=== PATIENT | female | born 1970 | race Caucasian/White ===

== ENCOUNTER → 2018-02-03 | Outpatient (CLI) | payer BC ==
--- NOTE | 2018-02-03 12:58 | MM ---
Reason for exam: screening (asymptomatic). Baseline mammogram. History: Took hormonal contraceptives beginning at age 17. Physical Findings: Nurse did not find any significant physical abnormalities on exam. MG 3D Screening Mammo W/Cad Bilateral CC and MLO view(s) were taken. The breast tissue is heterogeneously dense. This may lower the sensitivity of mammography. There is a group of 4mm calcifications upper outer quadrant at middle posterior depth. These results were verbally communicated with the patient and result sheet given to the patient on 02/03/18. ASSESSMENT: Incomplete: need additional imaging evaluation, BI-RAD 0 RECOMMENDATION: Special view mammogram of the left breast. (magnification views) Ultrasound of both breasts. (left lower inner quadrant, right upper outer quadrant) [facility] will attempt to contact patient to return for supplemental views and ultrasound.
--- NOTE | 2018-02-03 13:00 | MM ---
Reason for exam: additional evaluation requested from abnormal screening. History: Took hormonal contraceptives beginning at age 17. Physical Findings: Breast exam preformed at baseline screening. MG Work Up Mamm w CAD LT CC with magnification, LM with magnification, and LM view(s) were taken of the left breast. The breast tissue is heterogeneously dense. This may lower the sensitivity of mammography. There is a 3mm group of upper outer quadrant calcifications at middle depth, appear rounded and similar, probably benign. These results were verbally communicated with the patient and result sheet given to the patient on 02/03/18. ASSESSMENT: Probably benign, BI-RAD 3 RECOMMENDATION: Follow-up diagnostic mammogram of the left breast in 6 months.
--- NOTE | 2018-02-03 13:03 | USB ---
Reason for exam: additional evaluation requested from abnormal screening. History: Took hormonal contraceptives beginning at age 17. US Breast Workup Limited GOOD Right limited breast ultrasound including focal area of concern, retroareolar and axilla demonstrates a 0.2 x 0.2 x 0.3cm lesion too small to characterize at 10 o'clock, however no distinct increase through transmission, 6 month follow up recommended and a 0.9 x 0.9 x 0.6cm cystic, septated, benign lesion at 8 o'clock, correlates with mammogram. Left limited breast ultrasound including focal area of concern, retroareolar and axilla demonstrates a 0.4 x 0.4 x 0.2cm cystic lesion at the posterior nipple, 6 month follow up recommended. These results were verbally communicated with the patient and result sheet given to the patient on 02/03/18. ASSESSMENT: Probably benign, BI-RAD 3 RECOMMENDATION: Ultrasound of both breasts in 6 months.
== END | disposition home or self-care (01) ==
LOC: RADMAMWWP 10:15
PROVIDERS: ATTEND Family Medicine
DX: Z12.31 Encounter for screening mammogram for malignant neoplasm of breast (principal); R92.8 Other abnormal and inconclusive findings on diagnostic imaging of breast
CPT/HCPCS: 77063; 77065; 77067

== ENCOUNTER → 2018-08-21 | Outpatient (CLI) | payer BC ==
--- NOTE | 2018-08-21 11:54 | USB ---
Reason for exam: follow-up at short interval from prior study. History: Took hormonal contraceptives beginning at age 17. Physical Findings: Nurse did not find any significant physical abnormalities on exam. US Breast BILAT Right complete breast ultrasound includes all four quadrants, the retroareolar region and axilla. Finding demonstrates a 5 x 3 x 4mm cystic, mixed lesion at 12 o'clock, a 1.0 x 0.5 x 0.9cm cystic cluster at 8 o'clock prior measured 0.9 x 0.9 x 0.9cm and a 4 x 2 x 3mm lesion too small to characterize at 10 o'clock prior measured 0.2 x 0.2 x 0.3cm, this demonstrated minimal growth in a parralled fashion, likely a cyst, 6 month follow up recommended. Left complete breast ultrasound includes all four quadrants, the retroareolar region and axilla. Finding demonstrates a 5 x 3 x 4mm cystic lesion at 1 o'clock and a 5 x 2 x 6mm oval, cystic lesion at the posterior nipple prior measured 0.4 x 0.4 x 0.2c,/ These results were verbally communicated with the patient and result sheet given to the patient on 08/21/18. ASSESSMENT: Probably benign, BI-RAD 3 RECOMMENDATION: Ultrasound and follow-up diagnostic mammogram of both breasts in 6 months. Back on schedule.
== END | disposition home or self-care (01) ==
LOC: RADUSWWP 09:53
PROVIDERS: ATTEND Family Medicine
DX: R92.8 Other abnormal and inconclusive findings on diagnostic imaging of breast (principal)

== ENCOUNTER → 2018-11-18 | Outpatient (CLI) | payer BC ==
--- NOTE | 2018-11-18 21:28 | MR ---
EXAMINATION TYPE: MR brain wo/w con DATE OF EXAM: 11/18/2018 COMPARISON: NONE HISTORY: Headaches, dizziness, blurred vision, loss of balance TECHNIQUE: Multiplanar, multisequence images of the brain and brainstem is performed without and with IV contras t, utilizing 7 mL intravenous Gadavist . FINDINGS: Diffusion weighted images demonstrate no evidence of a recent infarct or other diffusion ab normality. There is no extra-axial fluid collection or significant white matter signal abnormality. The ventricular system and cisternal spaces are normal in size and appearance. The brain volume is age appropriate. Midline structures demonstrate normal morphology. The craniocervical junction appears within normal limits. Post contrast images demonstrate no abnormal enhancement. The dural venous sinuses appear pa tent. The visualized sinuses are clear and the globes are intact. Mastoid air cells show no suspiciou s opacification. IMPRESSION: No suspicious findings identified.
== END ==
LOC: RADMRIMAIN 15:05
PROVIDERS: ATTEND Family Medicine
DX: H93.3X9 Disorders of unspecified acoustic nerve (principal); H91.90 Unspecified hearing loss, unspecified ear; R42 Dizziness and giddiness
CPT/HCPCS: 70553; A9585

== ENCOUNTER → 2018-11-23 | Outpatient (CLI) | payer BC ==
--- NOTE | 2018-11-24 08:06 | US ---
EXAMINATION TYPE: US carotid duplex BILAT DATE OF EXAM: 11/23/2018 COMPARISON: NONE CLINICAL HISTORY: H53.9 Visual disturbance. Visual disturbance, headaches. EXAM MEASUREMENTS: RIGHT: Peak Systolic Velocity (PSV) cm/sec ----- Right CCA: 67.7 ----- Right ICA: 99.5 ----- Right ECA: 80.8 ICA/CCA ratio: 1.5 RIGHT: End Diastole cm/sec ----- Right CCA: 26.7 ----- Right ICA: 47.7 ----- Right ECA: 18.0 LEFT: Peak Systolic Velocity (PSV) cm/sec ----- Left CCA: 61.6 ----- Left ICA: 87.7 ----- Left ECA: 54.1 ICA/CCA ratio: 1.4 LEFT: End Diastole cm/sec ----- Left CCA: 28.5 ----- Left ICA: 40.3 ----- Left ECA: 13.7 VERTEBRALS (direction of flow): Right Vertebral: Antegrade Left Vertebral: Antegrade Rhythm: Normal Intimal thickening seen bilaterally. No elevated velocities obtained. No significant stenosis seen. IMPRESSION: Mild degree of grayscale atheromatous plaquing with no sonographically evident hemodynam ically significant stenosis within either visualized carotid arterial system. Criteria for Assigning % of Stenosis / Diameter reduction (Estimation based on the indirect measurements of the internal carotid artery velocities (ICA PSV). 1. Normal (no stenosis)=ICA PSV < 125 cm/s: ratio < 2.0: ICA EDV<40 cm/s. 2. Less than 50% stenosis=ICA PSV < 125 cm/s: ratio < 2.0: ICA EDV<40 cm/s. 3. 50 to 69% stenosis=ICA PSV of 125 to 230 cm/s: ration 2.0 ? 4.0: ICA EDV 40-100 cm/s. 4. Greater than 70% stenosis to near occlusion= ICA PSV > 230 cm/s: ratio > 4.0: ICA EDV > 100 cm/s. 5. Near occlusion= ICA PSV velocities may be low or undetectable: variable ratio and ICA EDV. 6. Total occlusion=unable to detect flow.
== END ==
LOC: RADUSWWP 16:44
PROVIDERS: ATTEND Family Medicine
DX: I67.2 Cerebral atherosclerosis (principal)
CPT/HCPCS: 93880

== ENCOUNTER 2018-12-11 05:24 | Emergency (ER) | payer BC ==
[2018-12-11 05:36] VITALS: TEMP 97.9
[2018-12-11 05:46] LABS: Glucose,Whole Blood 114 mg/dL (75-99)
--- NOTE | 2018-12-11 05:53 | ED ---
Neuro HPI - General Chief Complaint: Weakness Stated Complaint: rt side numbness Time Seen by Provider: 12/11/18 05:44 Source: patient Mode of arrival: wheelchair Limitations: no limitations - History of Present Illness Is the patient presenting with stroke symptoms?: Yes Last Known Well Date: 12/11/18 Last Known Well Time: 04:00 Onset/Timin -: minutes(s) Initial Comments: Patient is a 48-year-old woman who presents with complaint of right arm and right facial numbness. Patient states that she had gotten up this morning and was feeling like her usual self, and then as she was taking a shower around 4 AM she started to have symptoms. She states that they continued to worsen and she had her bring her here. Patient denies history of previous stroke. Patient denies use of blood thinner/anticoagulant. No previous history of bleeding diathesis. No recent surgery or procedure. Location: right face, right arm History of same: No Place: home Quality: numb Improves With: none Worsens With: none On Anticoagulants: No Context: sudden onset Treatments Prior to Arrival: none - Related Data Allergies/Adverse Reactions: Allergies Allergy/AdvReac Type Severity Reaction Status Date / Time cephalexin [From Keflex] Allergy Rash/Hives Verified 12/11/18 05:36 Review of Systems ROS Statement: Those systems with pertinent positive or pertinent negative responses have been documented in the HPI. ROS Other: All systems not noted in ROS Statement are negative. Constitutional: Denies: fever, chills Eyes: Denies: vision change Respiratory: Denies: cough, dyspnea Cardiovascular: Denies: chest pain, palpitations Gastrointestinal: Denies: abdominal pain, nausea, vomiting Genitourinary: Denies: dysuria, frequency, hematuria Musculoskeletal: Denies: back pain Skin: Denies: rash Neurological: Reports: weakness, numbness. Denies: headache, confusion, vertigo Psychiatric: Reports: anxiety General Exam Limitations: no limitations General appearance: alert, anxious Head exam: Present: atraumatic, normocephalic Eye exam: Present: normal appearance. Absent: scleral icterus, conjunctival injection ENT exam: Present: normal oropharynx Neck exam: Present: normal inspection, full ROM Respiratory exam: Present: normal lung sounds bilaterally. Absent: respiratory distress, wheezes, rales, rhonchi, stridor Cardiovascular Exam: Present: regular rate, normal rhythm, normal heart sounds. Absent: systolic murmur, diastolic murmur, rubs, gallop GI/Abdominal exam: Present: soft. Absent: distended, tenderness, guarding, rebound, rigid, mass Extremities exam: Present: normal inspection, normal capillary refill. Absent: pedal edema, calf tenderness Neurological exam: Present: alert, oriented X3, CN II-XII intact (Right facial droop), motor sensory deficit, other (Patient has right facial droop and mild right upper extremity weakness contrary the left side. Please see the NIH stroke scale attached.) Skin exam: Present: warm, dry, intact, normal color. Absent: rash Stroke MDM - Lab Data Result diagrams: 12/11/18 05:41 12/11/18 05:41 Lab Results 12/11/18 12/11/18 12/11/18 Range/Units 05:41 05:41 05:41 WBC 12.1 H (3.8-10.6) k/uL RBC 5.39 (3.80-5.40) m/uL Hgb 14.9 (11.4-16.0) gm/dL Hct 45.5 (34.0-46.0) % MCV 84.5 (80.0-100.0) fL MCH 27.6 (25.0-35.0) pg MCHC 32.7 (31.0-37.0) g/dL RDW 15.0 (11.5-15.5) % Plt Count 329 (150-450) k/uL Neutrophils % 70 % Lymphocytes % 22 % Monocytes % 3 % Eosinophils % 3 % Basophils % 0 % Neutrophils # 8.4 H (1.3-7.7) k/uL Lymphocytes # 2.7 (1.0-4.8) k/uL Monocytes # 0.4 (0-1.0) k/uL Eosinophils # 0.4 (0-0.7) k/uL Basophils # 0.1 (0-0.2) k/uL PT (9.0-12.0) sec INR (<1.2) APTT (22.0-30.0) sec Sodium 138 (137-145) mmol/L Potassium 4.5 (3.5-5.1) mmol/L Chloride 104 (98-107) mmol/L Carbon Dioxide 27 (22-30) mmol/L Anion Gap 7 mmol/L BUN 8 (7-17) mg/dL Creatinine 0.82 (0.52-1.04) mg/dL Est GFR (CKD-EPI)AfAm >90 (>60 ml/min/1.73 sqM) Est GFR (CKD-EPI)NonAf 85 (>60 ml/min/1.73 sqM) Glucose 109 H (74-99) mg/dL POC Glucose (mg/dL) (75-99) mg/dL POC Glu Erosion Control Coordinator ID Calcium 9.4 (8.4-10.2) mg/dL Total Bilirubin 0.8 (0.2-1.3) mg/dL AST 26 (14-36) U/L ALT 20 (9-52) U/L Alkaline Phosphatase 59 (38-126) U/L Total Creatine Kinase 106 (30-135) U/L CK-MB (CK-2) 0.4 (0.0-2.4) ng/mL CK-MB (CK-2) Rel Index 0.4 Troponin I <0.012 (0.000-0.034) ng/mL Total Protein 7.3 (6.3-8.2) g/dL Albumin 4.4 (3.5-5.0) g/dL 12/11/18 12/11/18 Range/Units 05:41 05:45 WBC (3.8-10.6) k/uL RBC (3.80-5.40) m/uL Hgb (11.4-16.0) gm/dL Hct (34.0-46.0) % MCV (80.0-100.0) fL MCH (25.0-35.0) pg MCHC (31.0-37.0) g/dL RDW (11.5-15.5) % Plt Count (150-450) k/uL Neutrophils % % Lymphocytes % % Monocytes % % Eosinophils % % Basophils % % Neutrophils # (1.3-7.7) k/uL Lymphocytes # (1.0-4.8) k/uL Monocytes # (0-1.0) k/uL Eosinophils # (0-0.7) k/uL Basophils # (0-0.2) k/uL PT 10.1 (9.0-12.0) sec INR 0.9 (<1.2) APTT 23.6 (22.0-30.0) sec Sodium (137-145) mmol/L Potassium (3.5-5.1) mmol/L Chloride (98-107) mmol/L Carbon Dioxide (22-30) mmol/L Anion Gap mmol/L BUN (7-17) mg/dL Creatinine (0.52-1.04) mg/dL Est GFR (CKD-EPI)AfAm (>60 ml/min/1.73 sqM) Est GFR (CKD-EPI)NonAf (>60 ml/min/1.73 sqM) Glucose (74-99) mg/dL POC Glucose (mg/dL) 114 H (75-99) mg/dL POC Glu Erosion Control Coordinator ID Ariana Ni Calcium (8.4-10.2) mg/dL Total Bilirubin (0.2-1.3) mg/dL AST (14-36) U/L ALT (9-52) U/L Alkaline Phosphatase (38-126) U/L Total Creatine Kinase (30-135) U/L CK-MB (CK-2) (0.0-2.4) ng/mL CK-MB (CK-2) Rel Index Troponin I (0.000-0.034) ng/mL Total Protein (6.3-8.2) g/dL Albumin (3.5-5.0) g/dL - EKG Data -: EKG Interpreted by Al EKG shows normal: sinus rhythm, axis (Normal), intervals (Normal), QRS complexes (Normal), ST-T waves (Normal) Rate: normal (Rate 65 bpm) Interpretation: normal EKG Past Medical History Past Medical History: Fibromyalgia History of Any Multi-Drug Resistant Organisms: None Reported Past Surgical History: Tubal Ligation Additional Past Surgical History / Comment(s): lap Past Psychological History: No Psychological Hx Reported Smoking Status: Current every day smoker Past Alcohol Use History: Occasional Past Drug Use History: None Reported Course Vital Signs 12/11/18 05:31 Temperature 97.9 F Pulse Rate 58 L Respiratory 20 Rate Blood Pressure 127/76 O2 Sat by Pulse 98 Oximetry - Reevaluation(s) Reevaluation #1: 12/11/18 06:30 Please note there is some delay in TPA administration, as the patient and her had slightly prolonged discussion regarding risks and benefits, and then deciding whether to take the medication. Critical Care Time Critical Care Time: Yes (40 minutes) Disposition Clinical Impression: Acute ischemic stroke Disposition: OTHER INSTITUTION NOT DEFINED Condition: Serious Is patient prescribed a controlled substance at d/c from ED?: No Referrals: Matthew John MD [Primary Care Provider] - 1-2 days
[2018-12-11 05:56] LABS: Basophils # (A) 0.1 k/uL (0-0.2); Basophils % (A) 0 %; Eosinophils # (A) 0.4 k/uL (0-0.7); Eosinophils % (A) 3 %; HCT 45.5 % (34.0-46.0); HGB 14.9 gm/dL (11.4-16.0); Lymphocytes # (A) 2.7 k/uL (1.0-4.8); Lymphocytes % (A) 22 %; MCH 27.6 pg (25.0-35.0); MCHC 32.7 g/dL (31.0-37.0); MCV 84.5 fL (80.0-100.0); Mean Platelet Volume 7.1; Monocytes # (A) 0.4 k/uL (0-1.0); Monocytes % (A) 3 %; Neutrophils # (A) 8.4 k/uL (1.3-7.7); Neutrophils % (A) 70 %; Platelet Count 329 k/uL (150-450); RBC 5.39 m/uL (3.80-5.40); WBC 12.1 k/uL (3.8-10.6)
[2018-12-11 06:07] LABS: INR 0.9 (<1.2); Partial Thromboplastin Time 23.6 sec (22.0-30.0); Prothrombin Time 10.1 sec (9.0-12.0)
[2018-12-11 06:09] LABS: ALT 20 U/L (9-52); AST 26 U/L (14-36); Albumin 4.4 g/dL (3.5-5.0); Alkaline Phosphatase 59 U/L (38-126); Anion Gap 7 mmol/L; Blood Urea Nitrogen 8 mg/dL (7-17); Calcium 9.4 mg/dL (8.4-10.2); Carbon Dioxide 27 mmol/L (22-30); Chloride 104 mmol/L (98-107); Glucose 109 mg/dL (74-99); Potassium 4.5 mmol/L (3.5-5.1); Sodium 138 mmol/L (137-145); Total Bilirubin 0.8 mg/dL (0.2-1.3); Total Protein 7.3 g/dL (6.3-8.2)
--- NOTE | 2018-12-11 06:12 | CT ---
EXAM: CT Head Without Intravenous Contrast. CLINICAL HISTORY: Reason: Neuro Deficits TECHNIQUE: Axial computed tomography images of the head/brain without intravenous contrast. CTDI is 43.6 mGy and DLP is 915 mGy-cm. This CT exam was performed using one or more of the following dose reduction techniques: automated exposure control, adjustment of the mA and/or kV according to patient size, and/or use of iterative reconstruction technique. COMPARISON: No relevant prior studies available. FINDINGS: Brain: Unremarkable. No hemorrhage. No significant white matter disease. No edema. Ventricles: Unremarkable. No ventriculomegaly. Bones: No acute fracture. Sinuses: Unremarkable as visualized. No acute sinusitis. Mastoid air cells: Unremarkable as visualized. No mastoid effusion. IMPRESSION: Normal head/brain.
--- NOTE | 2018-12-11 06:24 | CT ---
EXAMINATION TYPE: CT angio head neck DATE OF EXAM: 12/11/2018 HISTORY: Acute onset neurologic deficits, code stroke. COMPARISON: Carotid ultrasound November 23, 2018 CT DLP: 1340.3 mGycm. Automated Exposure Control for Dose Reduction was Utilized. TECHNIQUE: CTA scan of the head and neck are performed with IV Contrast, patient injected with 50 mL of Isovue 370, axial images are obtained, coronal and sagittal reformatted images are reviewed. Thre e-D reconstructed images are created on an independent workstation and reviewed. FINDINGS: Carotid/Vascular Structures: There is bovine type aortic arch which is normal variant. No significant plaque or stenosis in the arch. Right common carotid artery shows normal origin from right brachioce phalic artery. There is no significant plaque or stenosis in right common or internal carotid arterie s including at level of right carotid bulb. There is patent right external carotid artery without sig nificant plaque or stenosis. There is no significant plaque or stenosis in left common or internal carotid artery including at lev el of carotid bulb. There is patent left external carotid artery without significant stenosis or plaq ue. There is codominant vertebrobasilar system. Vertebral arteries are patent to basilar junction. There are hypoplastic bilateral posterior communicating arteries. No significant focal stenosis or aneurysm al changes identified. Images of the anterior circulation show patent anterior communicating artery of small caliber and hamlet gth. There is no significant focal stenosis or aneurysmal change identified. Other: Mild emphysematous change in the visualized lungs with scattered blebs. IMPRESSION: 1. No hemodynamically significant stenosis is seen in either internal or common carotid artery. 2. No aneurysmal change or significant focal stenosis at level of [place] of [place].
[2018-12-11 06:27] LABS: Creatine Kinase 106 U/L (30-135)
[2018-12-11] MEDS ORDERED: tPA (Alteplase) PER PHARMACY 1 EACH MISC MISCELLANE PRN (06:30)
[2018-12-11] MEDS ORDERED: ALTEPLASE BOLUS 6 MG in EMPTY SYRINGE 1 SYR IV STA (06:32)
[2018-12-11] MEDS ORDERED: ALTEPLASE 51 MG in EMPTY BAG 1 BAG IV STA (06:32)
[2018-12-11 06:40] LABS: Creatine Kinase MB 0.4 ng/mL (0.0-2.4); Troponin I <0.012 ng/mL (0.000-0.034)
--- NOTE | 2018-12-11 06:43 | XR ---
EXAMINATION TYPE: XR chest 1V portable DATE OF EXAM: 12/11/2018 COMPARISON: NONE HISTORY: Altered mental status and weakness. TECHNIQUE: Single AP portable frontal upright view of the chest is obtained. FINDINGS: Overlying EKG leads are present. There is no focal air space opacity, pleural effusion, or pneumothorax seen. The cardiac silhouette size is within normal limits. The osseous structures ar e intact. IMPRESSION: No acute process.
[2018-12-11 07:18] VITALS: BP 138/93; PULSE 61; RESP 18
== END 2018-12-11 07:15 | disposition other institution (70) ==
LOC: EC 05:24
DX: I63.9 Cerebral infarction, unspecified (principal); R29.705 NIHSS score 5; F17.200 Nicotine dependence, unspecified, uncomplicated; Z88.1 Allergy status to other antibiotic agents
CPT/HCPCS: 36415; 93005; 80053; 82550; 82553; 84484; 85025; 85610; 85730; 71045; 70496; 70450; 70498; 99291; 37195; J2997; Q9967

== ENCOUNTER → 2019-03-02 | Outpatient (CLI) | payer BC ==
--- NOTE | 2019-03-02 11:23 | MM ---
Reason for exam: additional evaluation requested from prior study. Last mammogram was performed 1 year and 1 month ago. History: Took hormonal contraceptives for 6 years beginning at age 17. Physical Findings: Nurse did not find any significant physical abnormalities on exam. MG 3D Diag Mammo W/Cad GOOD Bilateral CC and MLO view(s) were taken. Prior study comparison: February 03, 2018, left breast MG work up mamm w CAD LT. February 03, 2018, bilateral MG 3d screening mammo w/cad. The breast tissue is heterogeneously dense. This may lower the sensitivity of mammography. Finding #1: There is a 11 mm circumscribed oval mass in the middle position of the right breast, question in size. Finding #2: There are typically benign round, grouped/clustered calcifications in the left breast. There is a chronic nodularity in the left breast. These results were verbally communicated with the patient and result sheet given to the patient on 03/02/19. ASSESSMENT: Incomplete: need additional imaging evaluation, BI-RAD 0 RECOMMENDATION: Ultrasound of the right breast.
--- NOTE | 2019-03-02 11:25 | USB ---
Reason for exam: follow-up at short interval from prior study. History: Took hormonal contraceptives for 6 years beginning at age 17. US Breast RT Right complete breast ultrasound includes all four quadrants, the retroareolar region and axilla. Finding demonstrates a 11 x 5 x 10mm lobulated, cystic, stable lesion at 8 o'clock, a 4 x 3 x 5mm stable lesion too small to characterize at 10 o'clock and a 12mm oval, lymph node at the axilla tail. These results were verbally communicated with the patient and result sheet given to the patient on 03/02/19. ASSESSMENT: Benign, BI-RAD 2 RECOMMENDATION: Routine screening mammogram of both breasts in 1 year.
== END | disposition home or self-care (01) ==
LOC: RADMAMWWP 09:30
PROVIDERS: ATTEND Family Medicine
DX: R92.8 Other abnormal and inconclusive findings on diagnostic imaging of breast (principal)
CPT/HCPCS: 77062; 77066

== ENCOUNTER → 2019-12-30 | Outpatient (CLI) | payer BC ==
--- NOTE | 2019-12-30 11:06 | FL ---
EXAMINATION TYPE: FL barium swallow DATE OF EXAM: 12/30/2019 CLINICAL HISTORY: Dysphagia. Patient states food feels getting stuck in esophagus. Occasional coffee ground emesis. TECHNIQUE: A double contrast esophagram is performed utilizing air and barium. A total of 39 second s of fluoroscopic time was utilized during procedure. 42 spot images are saved during procedure. COMPARISON: None FINDINGS: The esophagus shows satisfactory motility and emptying into the stomach. No diverticulum. No evidence of fixed hiatal hernia or stricture noted. No suspicious intraluminal mass. No significan t gastroesophageal reflux was seen during real time performance of this study. IMPRESSION: No significant abnormality is seen to account for patient's symptoms.
== END | disposition home or self-care (01) ==
LOC: RADUSWWP 09:52
PROVIDERS: ATTEND Family Medicine
DX: R13.10 Dysphagia, unspecified (principal); R47.02 Dysphasia
CPT/HCPCS: 74220

== ENCOUNTER 2020-01-25 08:03 | Day surgery (SDC) | payer BC ==
[2020-01-21 10:14] VITALS: BMI 26.5
[~2020-01-25 08:03] MED LIST: LACTATED RINGERS 1,000 ML IV SCH
[2020-01-25 08:18] VITALS: TEMP 97.4
[2020-01-25] MEDS ORDERED: PROPOFOL 10 MG/ML 20 ML VIAL IV ONE (09:08)
--- NOTE | 2020-01-25 09:32 | P.PCN ---
Date of Procedure: 01/25/20 Description of Procedure: BRIEF HISTORY: Patient is a 49-year-old female presenting esophagogastroduodenoscopy for evaluation of dysphagia. She reports sensation of globus and fullness in her throat. She also reports episodes of nausea and vomiting occurring after she has eaten. She had an x-ray barium swallow with no significant abnormalities noted. PROCEDURE PERFORMED: Esophagogastroduodenoscopy with biopsy. PREOPERATIVE DIAGNOSIS: Esophageal dysphagia. ESTIMATED BLOOD LOSS: Minimal. IV sedation per anesthesia. PROCEDURE: After informed consent was obtained, the patient was brought into the endoscopy unit. IV sedation was administered by Anesthesia under continuous monitoring. Initially the Olympus GIF-190 video endoscope was inserted into the mouth. Esophagus intubated without any difficulty. It was gradually advanced into the stomach and duodenum and carefully examined. The bulb and the second part of the duodenum appeared normal, with biopsies taken. The scope at this time was withdrawn to the stomach, adequately insufflated with air, and upon careful examination, mucosa of the antrum, body, cardia and the fundus appeared normal, except for some mild scattered erythema in the antrum and body suggestive of mild gastritis with biopsies taken. The scope was then withdrawn into the esophagus. The GE junction was located at 37 cm from the incisors with biopsies taken to rule out of reflux esophagitis. The esophagus appeared normal, with mid esophageal biopsies taken to rule out eosinophilic esophagitis. There were no erosions or ulcerations seen and the patient tolerated the procedure well. IMPRESSION: 1. Mild gastritis antrum body, biopsied.. 2. No ulcers, masses or severe irritation and esophagus to explain symptoms. 3. Biopsies of the midesophagus, GE junction and duodenum. RECOMMENDATIONS: The findings of this examination were discussed with the patient. Okay to resume diet. Okay to resume medications. Suggestions have been made to the patient for a trial of ALLERGY medications such as loratadine or cetirizine for treatment of possible postnasal drip causing symptoms, as well as possible PPI therapy with [id number] Prilosec for possible reflux causing globus sensation. Otherwise x-ray barium swallow and EGD have been negative for any overt causes of dysphagia.
[2020-01-25 09:49] VITALS: BP 124/70; PULSE 57; RESP 18
== END 2020-01-25 10:45 | disposition home or self-care (01) ==
LOC: ORWHC2ENDO 08:03
PROVIDERS: ATTEND Internal Medicine
DX: K29.50 Unspecified chronic gastritis without bleeding (principal); K21.9 Gastro-esophageal reflux disease without esophagitis; I69.351 Hemiplegia and hemiparesis following cerebral infarction affecting right dominant side; M79.7 Fibromyalgia; R41.3 Other amnesia; M21.371 Foot drop, right foot; Z98.51 Tubal ligation status; Z79.899 Other long term (current) drug therapy; Z88.1 Allergy status to other antibiotic agents
CPT/HCPCS: 81025; 88305; 43239; J2704

== ENCOUNTER → 2022-11-25 | Outpatient (CLI) | payer BC ==
--- NOTE | 2022-11-25 09:19 | MM ---
Reason for Exam: Clinical finding. Last mammogram was performed 3 year(s) and 9 month(s) ago. Patient History: Menarche at age 12. First Full-Term at age 17. Postmenopausal. Hormonal Contraceptives for 6 years from age 17 until age 23. Risk Values: Nena 5 year model risk: 0.8%. NCI Lifetime model risk: 6.3%. Prior Study Comparison: 02/03/2018 Bilateral Screening Mammogram, [facility]. 02/03/2018 Left Diagnostic Mammogram, [facility]. 02/03/2018 Bilateral Diagnostic Ultrasound, [facility]. 08/21/2018 Bilateral Diagnostic Ultrasound, [facility]. 03/02/2019 Bilateral Diagnostic Mammogram, [facility]. 03/02/2019 Right Diagnostic Ultrasound, [facility]. Tissue Density: There are scattered fibroglandular densities. Findings: Analyzed By CAD. Pattern appears symmetrical and stable. Chronic nodularities within the bilateral breasts. No significant interval change is evident. No suspicious groups of microcalcifications, spiculated or lobular masses, architectural distortion or other secondary signs of malignancy are mammographically apparent. Overall Assessment: Benign, BI-RAD 2 Management: Screening Mammogram of both breasts in 1 year. A negative mammogram report should not preclude additional follow up of suspicious palpable abnormalities. Patient should continue monthly self breast exam. A clinical breast exam by your physician is recommended on an annual basis and results should be correlated with mammographic findings. Electronically signed and approved by: Rubén Lerma D.O. Radiologis
== END | disposition home or self-care (01) ==
LOC: RADMAMWWP 11-21 14:49
PROVIDERS: ATTEND Family Medicine
DX: R92.8 Other abnormal and inconclusive findings on diagnostic imaging of breast (principal); Z78.0 Asymptomatic menopausal state
CPT/HCPCS: 77062; 77066

== ENCOUNTER → 2023-11-19 | Outpatient (CLI) | payer BC, MEDICARE ==
--- NOTE | 2023-11-24 17:00 | CT ---
EXAMINATION TYPE: CT abdomen pelvis w con CT DLP: 597.4 mGycm, Automated exposure control for dose reduction was used. 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 Contrast used:100 mL of Isovue 300 with IV Contrast, (none if empty) Oral contrast used: with Oral Contrast (none if empty) FINDINGS: LOWER CHEST: Unremarkable ABDOMEN LIVER: Unremarkable GALLBLADDER AND BILE DUCTS: Gallstones. No cholecystitis PANCREAS: Unremarkable. SPLEEN: Unremarkable. ADRENAL GLANDS: Unremarkable. KIDNEYS AND URETERS: No evidence of hydronephrosis or renal calculus. The ureters are unremarkable. PELVIS BLADDER: Unremarkable REPRODUCTIVE: Unremarkable. ABDOMEN & PELVIS STOMACH AND BOWEL: Stomach and duodenum are unremarkable. No evidence of bowel obstruction. Left lo wer quadrant ostomy site is unremarkable. PERITONEUM/RETROPERITONEUM: No evidence of pneumoperitoneum or free fluid. VASCULATURE: No evidence of aortic aneurysm. MUSCULOSKELETAL: No acute osseous abnormalities LYMPH NODES: No gross evidence for lymphadenopathy. SOFT TISSUE/ABDOMINAL WALL: Unremarkable IMPRESSION: 1. Unremarkable exam.
== END | disposition home or self-care (01) ==
LOC: RADCTMAIN 09:22
PROVIDERS: ATTEND Surgery
DX: K57.32 Diverticulitis of large intestine without perforation or abscess without bleeding (principal)
CPT/HCPCS: 74177; Q9967

== ENCOUNTER 2023-12-04 09:13 | Day surgery (SDC) | payer BC, MEDICARE ==
[2023-12-04 10:14] VITALS: TEMP 96.9
[2023-12-04] MEDS: LACTATED RINGERS 1,000 ML IV SCH (10:15)
[2023-12-04] MEDS ORDERED: PROPOFOL 10 MG/ML 20 ML VIAL IV ONE (10:18)
[2023-12-04 10:22] LABS: Basophils # (A) 0.1 k/uL (0-0.2); Basophils % (A) 1 %; Eosinophils # (A) 0.5 k/uL (0-0.7); Eosinophils % (A) 3 %; HCT 46.1 % (34.0-46.0); HGB 15.2 gm/dL (11.4-16.0); Lymphocytes # (A) 2.6 k/uL (1.0-4.8); Lymphocytes % (A) 18 %; MCH 27.9 pg (25.0-35.0); MCHC 32.9 g/dL (31.0-37.0); Mean Platelet Volume 7.7; Monocytes # (A) 0.4 k/uL (0-1.0); Monocytes % (A) 3 %; Neutrophils # (A) 10.6 k/uL (1.3-7.7); Neutrophils % (A) 74 %; Platelet Count 287 k/uL (150-450); RBC 5.43 m/uL (3.80-5.40); RDW 14.9 % (11.5-15.5); WBC 14.3 k/uL (3.8-10.6)
--- NOTE | 2023-12-04 10:30 | P.OP ---
Date of Procedure: 12/04/23 Preoperative Diagnosis: diverticulosis Postoperative Diagnosis: diverticulosis Procedure(s) Performed: colonoscopy Anesthesia: MAC Surgeon: Ben Greenberg Pathology: none sent Condition: stable Disposition: PACU Description of Procedure: the patient's placed on the endoscopy table in the lateral position. She received IV sedation. Digital rectal exam was performed. There was some dried mucous the rectum. This was removed digitally. The flexible colonoscope was then placed patient anus and passed the rectal stump. The rectus of measured approximately 15 cm length. Scope was withdrawn. The Patient rotated on her back. Then the colonoscope was placed in patient's colostomy passed rotator colon. The ileocecal valve was visually is. The cecum, ascending and transverse colon appeared normal. In the descending colon there was a few scattered diverticula. Scope withdrawn for patient.
[2023-12-04 12:10] VITALS: BP 129/78; PULSE 61; RESP 16
== END 2023-12-04 11:17 | disposition home or self-care (01) ==
LOC: ORWHC2ENDO 09:13
PROVIDERS: ATTEND Surgery
DX: K57.30 Diverticulosis of large intestine without perforation or abscess without bleeding (principal); I10 Essential (primary) hypertension; E78.5 Hyperlipidemia, unspecified; K21.9 Gastro-esophageal reflux disease without esophagitis; Z86.73 Personal history of transient ischemic attack (TIA), and cerebral infarction without residual deficits; Z88.1 Allergy status to other antibiotic agents; Z79.01 Long term (current) use of anticoagulants; Z79.899 Other long term (current) drug therapy
CPT/HCPCS: 86900; 86901; 85025; 86850; 44388; J2704

== ENCOUNTER 2023-12-05 06:48 | Inpatient (IN) | payer BC, MEDICARE ==
[~2023-12-05 06:48] MED LIST changes: +HEPARIN SODIUM,PORCINE 5,000 UNIT/ML 1 ML VIAL SQ PRN; -LACTATED RINGERS 1,000 ML IV SCH
[2023-12-05] MEDS ORDERED: MIDAZOLAM 2 MG/2 ML VIAL IV PRN (07:00)
[2023-12-05] MEDS: LACTATED RINGERS 1,000 ML IV SCH (07:29)
[2023-12-05] MEDS: ONDANSETRON 4 MG/2 ML VIAL IVP ONE (07:49)
[2023-12-05] MEDS: DEXAMETHASONE SOD PHOSPHATE 4 MG/ML 1 ML VIAL IV ONE (07:49)
[2023-12-05] MEDS: ACETAMINOPHEN TAB 500 MG TAB PO PRN (07:49)
[2023-12-05] MEDS: MIDAZOLAM 2 MG/2 ML VIAL IVP ONE ×2 (07:54→11:59)
[2023-12-05 08:09] LABS: Prothrombin Time 11.2 sec (10.0-12.5)
--- NOTE | 2023-12-05 08:15 | P.ANPRN ---
Procedure Note - Anesthesia - Epidural/Spinal Epidural Time Out Performed: Yes Date of Procedure: 12/05/23 Procedure Start Time: 07:54 Procedure Stop Time: 08:01 Location of Patient: PreOp Indication: Acute Post-Operative Pain, Analgesia, Requested by Surgeon Sedation Type: Sedate with meaningful contact maintained Preparation: Sterile Prep Position: Sitting Catheter Depth at Skin (cm): 11 Catheter: Indwelling Needle Guage: 18 Narrative: Test dose with 1.5% lidocaine with epinephrine 3 cc, no signs and symptoms. Catheter entry-level L4-5. Blood Aspirated: No Pain Paresthesia on Injection Noted: No Events: Uneventful and Well Tolerated
[2023-12-05] MEDS ORDERED: NALOXONE 0.4 MG/ML 1 ML VIAL IV PRN (08:16)
[2023-12-05 08:30] LABS: ALT 27 U/L (4-34); AST 30 U/L (14-36); African American GFR (CKD) >90 (>60 ml/min/1.73 sqM); Albumin 4.1 g/dL (3.5-5.0); Alkaline Phosphatase 72 U/L (38-126); Anion Gap 7 mmol/L; Blood Urea Nitrogen 5 mg/dL (7-17); Calcium 9.4 mg/dL (8.4-10.2); Carbon Dioxide 25 mmol/L (22-30); Chloride 108 mmol/L (98-107); Glucose 83 mg/dL (74-99); Non-African American GFR(CKD) >90 (>60 ml/min/1.73 sqM); Potassium 3.8 mmol/L (3.5-5.1); Sodium 140 mmol/L (137-145); Total Bilirubin 0.6 mg/dL (0.2-1.3); Total Protein 7.2 g/dL (6.3-8.2)
[2023-12-05] MEDS ORDERED: ROCURONIUM 10 MG/ML (5 ML VIAL) IV ONE (09:04)
[2023-12-05] MEDS ORDERED: PHENYLEPHRINE 10 MG/ML VIAL ONE (09:04)
[2023-12-05] MEDS ORDERED: MIDAZOLAM 2 MG/2 ML VIAL ONE (09:04)
[2023-12-05] MEDS ORDERED: PROPOFOL 10 MG/ML 20 ML VIAL IV ONE (09:04)
[2023-12-05] MEDS ORDERED: NEOSTIGMINE 1 MG/ML 10 ML VIAL ONE (09:04)
[2023-12-05] MEDS ORDERED: KETOROLAC 15 MG/ML 1 ML VIAL ONE (09:04)
[2023-12-05] MEDS ORDERED: KETAMINE HCL IN 0.9 % NACL 50 MG/5 ML SYRINGE ONE (09:04)
[2023-12-05] MEDS ORDERED: GLYCOPYRROLATE 0.2 MG/ML 2 ML VIAL ONE (09:04)
[2023-12-05] MEDS ORDERED: fentaNYL (PF) 50 MCG/ML 2 ML AMP ONE (09:04)
[2023-12-05] MEDS: metroNIDAZOLE-NS PMX 500 MG in SALINE 1 100ML.BAG IVPB PRN (09:14)
[2023-12-05] MEDS: LACTATED RINGERS 1,000 ML IV ONE ×2 (10:11→13:05)
[2023-12-05] MEDS ORDERED: BENZOCAINE/MENTHOL LOZENG 1 EACH LOZENGE MUCOUS MEM PRN (10:30)
--- NOTE | 2023-12-05 10:30 | P.OP ---
Date of Procedure: 12/05/23 Preoperative Diagnosis: history of diverticulitis Postoperative Diagnosis: history of diverticulitis Procedure(s) Performed: reversal colostomy Takedown of splenic flexure Anesthesia: RADHA Surgeon: Ben Greenberg Estimated Blood Loss (ml): 25 Pathology: other (colon) Condition: stable Disposition: PACU
[2023-12-05] MEDS: ROPIVACAINE 250 MG, HYDROMORPHONE (PF) 5 MG in SODIUM CHLORIDE 0.9% 200 ML EPIDURAL PRN (10:54)
[2023-12-05] MEDS: IV FLUID CONTINUATION 1,000 ML IV ONE ×2 (11:00→12:40)
[2023-12-05] MEDS: HYDROmorphone 0.5 MG/0.5 ML SYRINGE IVP PRN (11:22)
[2023-12-05 15:02] LABS: Basophils % (A) 0 %; Eosinophils # (A) 0.1 k/uL (0-0.7); Eosinophils % (A) 1 %; HCT 40.5 % (34.0-46.0); HGB 12.6 gm/dL (11.4-16.0); Lymphocytes # (A) 0.9 k/uL (1.0-4.8); Lymphocytes % (A) 4 %; MCH 27.3 pg (25.0-35.0); MCV 88.2 fL (80.0-100.0); Mean Platelet Volume 7.6; Monocytes # (A) 0.6 k/uL (0-1.0); Monocytes % (A) 3 %; Neutrophils # (A) 19.8 k/uL (1.3-7.7); Neutrophils % (A) 92 %; Platelet Count 270 k/uL (150-450); RBC 4.59 m/uL (3.80-5.40); RDW 14.9 % (11.5-15.5); WBC 21.5 k/uL (3.8-10.6)
[2023-12-05 15:38] LABS: African American GFR (CKD) >90 (>60 ml/min/1.73 sqM); Anion Gap 5 mmol/L; Blood Urea Nitrogen 7 mg/dL (7-17); Calcium 8.7 mg/dL (8.4-10.2); Carbon Dioxide 22 mmol/L (22-30); Chloride 110 mmol/L (98-107); Glucose 111 mg/dL (74-99); Non-African American GFR(CKD) >90 (>60 ml/min/1.73 sqM); Potassium 4.3 mmol/L (3.5-5.1); Sodium 137 mmol/L (137-145)
[2023-12-05] MEDS: HEPARIN SODIUM,PORCINE 5,000 UNIT/ML 1 ML VIAL SQ SCH (17:19)
[2023-12-05] MEDS: SCOPOLAMINE 1 MG/72 HR PATCH TRANSDERM ONE (17:27)
--- NOTE | 2023-12-05 17:44 | P.CONS ---
History of Present Illness - Reason for Consult Consult date: 12/05/23 - Chief Complaint medical management - History of Present Illness 53-year-old woman with medical history of fibromyalgia, depression, hyperlipidemia presented for evaluation of colostomy reversal. Patient had perforated diverticulitis and underwent diverting colostomy via surgery. She has no complaints at this time. Today, patient is afebrile, 109/71, heart rate 58, 100% on 3 L nasal cannula. White blood cell count is elevated to 21.5. Basic metabolic panel is unremarkable. Patient underwent successful reversal of colostomy. Gen: In NAD, non-toxic HEENT: normocephalic, atraumatic, hearing acuity is intant, mucous membranes moist CVS: perfusing all extremities well, no pitting edema, Respiratory: symmetric chest expansion, no accessory muscle use, GI: soft, NTTP, ND, : no suprapubic tenderness, no CVA tenderness MSK/Derm: no rashes, cyanosis Neuro: CN II-XII intact, no motor weakness, Psych: cooperative, euthymic mood, judgment and insight is intact Assessment/plan: Fibromyalgia Depression Hyperlipidemia History of CVA -Continue to hold Xarelto -Resume pravastatin -resume PPI -resume duloxetine -resume triamcinolone Note: these are all oral meds, and they are all okay to hold until patient can tolerate PO per primary team. 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 Diverticulitis, colitis, bowel obstruction hospitalized at [facility] 08/24/23-09/15/23. History of Any Multi-Drug Resistant Organisms: None Reported Past Surgical History: Bowel Resection, Tubal Ligation Additional Past Surgical History / Comment(s): laparoscopy, colonoscopy 2 yrs ago, EGD 4 yrs ago, SHIN procedure with colostomy 08/27/23. Past Anesthesia/Blood Transfusion Reactions: No Reported Reaction Past Psychological History: Anxiety, Depression Smoking Status: Current every day smoker Past Alcohol Use History: None Reported Additional Past Alcohol Use History / Comment(s): Has been smoking for 17 yrs, quit for one 1 yr and started again September 2019, 1 PPD. Past Drug Use History: None Reported - Past Family History Mother Family Medical History: No Reported History Father Additional Family Medical History / Comment(s): hemorrhagic stroke Medications and Allergies Home Medications Medication Instructions Recorded Confirmed Type DULoxetine HCL [Cymbalta] 60 mg PO DAILY 01/20/20 12/05/23 History Pravastatin Sodium [Pravachol] 80 mg PO HS 08/24/23 12/05/23 History Rivaroxaban [Xarelto] 2.5 mg PO BID 08/24/23 12/05/23 History Triamcinolone 0.1% Cream [Kenalog 1 applicatio TOPICAL BID 08/24/23 12/05/23 History 0.1% Cream] Docusate [Colace] 100 mg PO BID #60 cap 09/15/23 12/05/23 Rx Pantoprazole [Protonix] 40 mg PO AC-BRKFST #60 tab 09/15/23 12/05/23 Rx Allergies Allergy/AdvReac Type Severity Reaction Status Date / Time cephalexin [From Keflex] Allergy Rash/Hives Verified 12/05/23 07:28 Physical Exam Osteopathic Statement: *. No significant issues noted on an osteopathic structural exam other than those noted in the History and Physical/Consult. Vitals: Vital Signs Temp Pulse Pulse Resp BP BP BP 12/05/23 14:28 97.4 F L 58 L 17 109/71 12/05/23 13:45 63 17 90/51 12/05/23 13:30 61 17 91/47 12/05/23 13:15 55 L 16 90/49 12/05/23 13:00 65 16 100/54 12/05/23 12:45 62 16 90/50 12/05/23 12:32 61 16 85/53 12/05/23 12:25 54 L 14 74/43 12/05/23 12:15 57 L 15 74/41 12/05/23 12:05 61 15 90/50 12/05/23 11:52 60 16 104/58 12/05/23 11:45 53 L 17 130/66 12/05/23 11:31 47 L 16 131/69 12/05/23 11:16 51 L 15 128/64 12/05/23 11:07 59 L 18 131/69 12/05/23 10:54 97.6 F 62 20 124/67 12/05/23 08:11 67 18 122/79 12/05/23 07:22 97.0 F L 66 18 137/71 Pulse Ox 12/05/23 14:28 100 12/05/23 13:45 100 12/05/23 13:30 100 12/05/23 13:15 100 12/05/23 13:00 100 12/05/23 12:45 100 12/05/23 12:32 100 12/05/23 12:25 98 12/05/23 12:15 98 12/05/23 12:05 98 12/05/23 11:52 98 12/05/23 11:45 98 12/05/23 11:31 98 12/05/23 11:16 100 12/05/23 11:07 98 12/05/23 10:54 98 12/05/23 08:11 100 12/05/23 07:22 100 Intake and Output 12/05/23 12/05/23 12/05/23 06:59 14:59 22:59 Intake Total 4150 Output Total 200 Balance 3950 Intake: IV 4150 Output: Urine 150 Estimated Blood Loss 50 Other: Weight 70 kg Results CBC & Chem 7: 12/05/23 14:23 12/05/23 14:23 Labs: Abnormal Lab Results - Last 24 Hours (Table) 12/05/23 12/05/23 12/05/23 Range/Units 07:46 14:23 14:23 WBC 21.5 H (3.8-10.6) k/uL Neutrophils # 19.8 H (1.3-7.7) k/uL Lymphocytes # 0.9 L (1.0-4.8) k/uL Chloride 108 H 110 H (98-107) mmol/L BUN 5 L (7-17) mg/dL Glucose 111 H (74-99) mg/dL
[2023-12-05] MEDS: ALVIMOPAN 12 MG CAPSULE PO SCH (20:43)
[2023-12-05] MEDS: PRAVASTATIN SODIUM 80 MG TAB PO SCH (20:43)
[2023-12-05] MEDS: TRIAMCINOLONE 0.1% CREAM 80 GM TUBE TOPICAL SCH (20:43)
[2023-12-05] MEDS: ONDANSETRON 4 MG/2 ML VIAL IVP PRN (23:43)
[2023-12-06] MEDS: PANTOPRAZOLE 40 MG TABLET PO SCH (08:00)
[2023-12-06] MEDS: DULoxetine HCL 60 MG CAPSULE.DR PO SCH (08:00)
--- NOTE | 2023-12-06 12:06 | P.PN ---
Subjective Progress Note Date: 12/06/23 No new complaints today. Consideration of abdominal binder for additional pain control. Gen: In NAD, non-toxic HEENT: normocephalic, atraumatic, hearing acuity is intant, mucous membranes moist CVS: perfusing all extremities well, no pitting edema, Respiratory: symmetric chest expansion, no accessory muscle use, GI: soft, NTTP, ND, : no suprapubic tenderness, no CVA tenderness MSK/Derm: no rashes, cyanosis Neuro: CN II-XII intact, no motor weakness, Psych: cooperative, euthymic mood, judgment and insight is intact Hospital Course: 53-year-old woman with medical history of fibromyalgia, depression, hyperlipidemia presented for evaluation of colostomy reversal. Patient had perforated diverticulitis and underwent diverting colostomy via surgery. She has no complaints at this time. Upon initial evaluation, patient is afebrile, 109/71, heart rate 58, 100% on 3 L nasal cannula. White blood cell count is elevated to 21.5. Basic metabolic panel is unremarkable. Patient underwent successful reversal of colostomy. Assessment/plan: Fibromyalgia Depression Hyperlipidemia History of CVA -Continue to hold Xarelto -Resume pravastatin -resume PPI -resume duloxetine -resume triamcinolone Note: these are all oral meds, and they are all okay to hold until patient can tolerate PO per primary team. Objective - Vital Signs Vital signs: Vital Signs Temp 98.9 F 12/06/23 07:05 Pulse 84 12/06/23 07:05 Resp 17 12/06/23 07:05 BP 94/56 12/06/23 07:05 Pulse Ox 94 L 12/06/23 07:05 FiO2 Intake & Output 12/05/23 12/06/23 12/06/23 18:59 06:59 18:59 Intake Total 4150 190 Output Total 200 350 Balance 3950 -160 Weight 70 kg Intake: IV 4150 Intake, IV Titration 190 Amount Lactated Ringers 1,000 ml 140 @ 20 mls/hr IV .Q24H [facility] Rx#:[id number] ceFAZolin 2 gm In Sodium 50 Chloride 0.9% 50 ml @ 100 mls/hr IVPB ONCE PRN Rx# :[id number] Output: Urine 150 350 Estimated Blood Loss 50 Other: Voiding Method Indwelling Catheter Indwelling Catheter - Labs CBC & Chem 7: 12/05/23 14:23 12/05/23 14:23 Labs: Abnormal Lab Results - Last 24 Hours (Table) 12/05/23 12/05/23 Range/Units 14:23 14:23 WBC 21.5 H (3.8-10.6) k/uL Neutrophils # 19.8 H (1.3-7.7) k/uL Lymphocytes # 0.9 L (1.0-4.8) k/uL Chloride 110 H (98-107) mmol/L Glucose 111 H (74-99) mg/dL
--- NOTE | 2023-12-06 16:46 | P.PN ---
Subjective patient seen and evaluated bedside. Patient complains of mild abdominal pain/soreness. Denies nausea vomiting at this time. Objective - Vital Signs Vital signs: Vital Signs Temp 98.6 F 12/06/23 14:50 Pulse 94 12/06/23 14:50 Resp 18 12/06/23 14:50 BP 115/72 12/06/23 14:50 Pulse Ox 93 L 12/06/23 14:50 FiO2 Intake & Output 12/05/23 12/06/23 12/06/23 18:59 06:59 18:59 Intake Total 4150 190 Output Total 200 350 Balance 3950 -160 Weight 70 kg Intake: IV 4150 Intake, IV Titration 190 Amount Lactated Ringers 1,000 ml 140 @ 20 mls/hr IV .Q24H [facility] Rx#:[id number] ceFAZolin 2 gm In Sodium 50 Chloride 0.9% 50 ml @ 100 mls/hr IVPB ONCE PRN Rx# :[id number] Output: Urine 150 350 Estimated Blood Loss 50 Other: Voiding Method Indwelling Catheter Indwelling Catheter - Exam general no acute distress alert and oriented 3 Cardiovascular regular rhythm Pulmonary nonlabored breathing Abdomen soft, distended, tender to palpation, surgical incision clean dry and intact/Provena - Labs CBC & Chem 7: 12/05/23 14:23 12/05/23 14:23 Assessment and Plan Assessment: 53-year-old female status post Lay reversal We'll consider advancement to clear liquid diet once patient has flatus and/or significant decrease in distention Ice chips okay for now Encourage undulation once approved by anesthesia (epidural) Time with Patient: Greater than 30
--- NOTE | 2023-12-06 17:20 | P.PN ---
Progress Note - Text Progress Note Date: 12/06/23 Postoperative day #1 status post reversal colostomy epidural catheter placed for postoperative analgesia, patient doing well epidural site okay, patient currently on combination of epidural infusion solution of Ropivacaine 0.0625% and Dilaudid 20 g per mL the infusion rate at 14 ml per hour , patient had no motor deficit epidural site okay , patient had no motor deficit ,vital signs stable ,VAS 3-4 /10 , Assessment and plan= post operative day #1 patient doing well ,pain well controlled , there is no anesthesia related complications
[2023-12-06] MEDS: LACTATED RINGERS 1,000 ML IV SCH (20:00)
--- NOTE | 2023-12-07 10:19 | P.PN ---
Subjective Progress Note Date: 12/07/23 No new complaints today. Consideration of abdominal binder for additional pain control. Gen: In NAD, non-toxic HEENT: normocephalic, atraumatic, hearing acuity is intant, mucous membranes moist CVS: perfusing all extremities well, no pitting edema, Respiratory: symmetric chest expansion, no accessory muscle use, GI: soft, NTTP, ND, : no suprapubic tenderness, no CVA tenderness MSK/Derm: no rashes, cyanosis Neuro: CN II-XII intact, no motor weakness, Psych: cooperative, euthymic mood, judgment and insight is intact Hospital Course: 53-year-old woman with medical history of fibromyalgia, depression, hyperlipidemia presented for evaluation of colostomy reversal. Patient had perforated diverticulitis and underwent diverting colostomy via surgery. She has no complaints at this time. Upon initial evaluation, patient is afebrile, 109/71, heart rate 58, 100% on 3 L nasal cannula. White blood cell count is elevated to 21.5. Basic metabolic panel is unremarkable. Patient underwent successful reversal of colostomy. Assessment/plan: Fibromyalgia Depression Hyperlipidemia History of CVA -Continue to hold Xarelto -Resume pravastatin -resume PPI -resume duloxetine -resume triamcinolone Note: these are all oral meds, and they are all okay to hold until patient can tolerate PO per primary team. Objective - Vital Signs Vital signs: Vital Signs Temp 98.4 F 12/07/23 07:51 Pulse 81 12/07/23 07:51 Resp 20 12/07/23 07:51 BP 138/77 12/07/23 07:51 Pulse Ox 95 12/07/23 07:51 FiO2 Intake & Output 12/06/23 12/07/23 12/07/23 18:59 06:59 18:59 Intake Total 587.767 Output Total 175 Balance 587.767 -175 Intake: Intake, IV Titration 587.767 Amount Lactated Ringers 1,000 ml 385 @ 20 mls/hr IV .Q24H [facility] Rx#:[id number] Ropivacaine 250 mg 202.767 Hydromorphone (Pf) 5 mg In Sodium Chloride 0.9% 200 ml @ Per Protocol EPIDURAL .Q0M PRN Rx#: [id number] Output: Urine 175 Other: Voiding Method Indwelling Catheter Indwelling Catheter - Labs CBC & Chem 7: 12/05/23 14:23 12/05/23 14:23
--- NOTE | 2023-12-07 10:58 | P.PN ---
Subjective Progress Note Date: 12/07/23 Principal diagnosis: Colostomy reversal Patient says she is doing better today. She says she feels less bloated. Denies nausea. No bowel movement. No flatus. Calvin and epidural catheter remain in place. Objective - Vital Signs Vital signs: Vital Signs Temp 98.4 F 12/07/23 07:51 Pulse 81 12/07/23 07:51 Resp 20 12/07/23 10:37 BP 138/77 12/07/23 07:51 Pulse Ox 95 12/07/23 07:51 FiO2 Intake & Output 12/06/23 12/07/23 12/07/23 18:59 06:59 18:59 Intake Total 587.767 Output Total 175 Balance 587.767 -175 Intake: Intake, IV Titration 587.767 Amount Lactated Ringers 1,000 ml 385 @ 20 mls/hr IV .Q24H [facility] Rx#:[id number] Ropivacaine 250 mg 202.767 Hydromorphone (Pf) 5 mg In Sodium Chloride 0.9% 200 ml @ Per Protocol EPIDURAL .Q0M PRN Rx#: [id number] Output: Urine 175 Other: Voiding Method Indwelling Catheter Indwelling Catheter Indwelling Catheter # Voids 2 - Exam Abdomen: Soft, mild distention, mild tenderness, dressing clean and dry - Labs CBC & Chem 7: 12/05/23 14:23 12/05/23 14:23 Assessment and Plan (1) Diverticulitis Narrative/Plan: 53-year-old female underwent recent colostomy reversal. Keep n.p.o. for now. Increase activity. Continue epidural and Calvin catheter. Repeat labs. Current Visit: No Status: Acute Code(s): K57.92 - DVTRCLI OF INTEST, PART UNSP, W/O PERF OR ABSCESS W/O BLEED SNOMED Code(s): 306900088
--- NOTE | 2023-12-07 13:47 | P.PN ---
Progress Note - Text Progress Note Date: 12/07/23 Postoperative day #2 status post reversal colostomy epidural catheter placed for postoperative analgesia, patient doing well epidural site okay, patient currently on combination of epidural infusion solution of Ropivacaine 0.0625% and Dilaudid 20 g per mL the infusion rate at 13 ml per hour , patient had no motor deficit epidural site okay , patient had no motor deficit ,vital signs stable ,VAS 3-4 /10 , Assessment and plan= post operative day #2 patient doing well ,pain well co ntrolled , there is no anesthesia related complications
[2023-12-08 09:26] LABS: Basophils # (A) 0.03 X 10*3/uL (0.00-0.10); Basophils % (A) 0.2 %; Eosinophils # (A) 0.21 X 10*3/uL (0.04-0.35); Eosinophils % (A) 1.4 %; HCT 34.2 % (37.2-46.3); HGB 10.9 g/dL (12.0-15.0); Lymphocytes # (A) 1.46 X 10*3/uL (0.90-5.00); Lymphocytes % (A) 9.7 %; MCH 27.4 pg (27.0-32.0); MCHC 31.9 g/dL (32.0-37.0); MCV 85.9 FL (80.0-97.0); Mean Platelet Volume 9.8 FL (9.5-12.2); Monocytes # (A) 0.65 X 10*3/uL (0.20-1.00); Monocytes % (A) 4.3 %; NRBC Per 100 WBC 0 X 10*3/uL (0.00-0.01); Neutrophils # (A) 12.55 X 10*3/uL (1.80-7.70); Neutrophils % (A) 83.7 %; Platelet Count 248 X 10*3/uL (140-440); RBC 3.98 X 10*6/uL (4.10-5.20); RDW 14.6 % (11.5-14.5)
[2023-12-08 09:37] LABS: Blood Urea Nitrogen 10.5 mg/dL (9.0-27.0); Calcium 8.5 mg/dL (8.7-10.3); Carbon Dioxide 22.5 mmol/L (21.6-31.8); Chloride 102 mmol/L (96-109); Glucose 88 mg/dL (70-110); Potassium 4.2 mmol/L (3.5-5.5); Sodium 137 mmol/L (135-145)
--- NOTE | 2023-12-08 09:49 | P.PN ---
Subjective Progress Note Date: 12/08/23 Principal diagnosis: Colostomy reversal Patient says she feels better today. Somewhat less bloated. She is still nauseated and did vomit yesterday. No bowel function yet. Tolerating sips of clears. White blood cell count improved to 15. Objective - Vital Signs Vital signs: Vital Signs Temp 98.2 F 12/08/23 07:21 Pulse 78 12/08/23 07:21 Resp 20 12/08/23 09:08 BP 144/82 12/08/23 07:21 Pulse Ox 93 L 12/08/23 07:21 FiO2 Intake & Output 12/07/23 12/08/23 12/08/23 18:59 06:59 18:59 Intake Total 342.883 235.95 50 Output Total 450 425 Balance -107.117 -189.05 50 Intake: Intake, IV Titration 242.883 235.95 Amount Ropivacaine 250 mg 242.883 235.95 Hydromorphone (Pf) 5 mg In Sodium Chloride 0.9% 200 ml @ Per Protocol EPIDURAL .Q0M PRN Rx#: [id number] Oral 100 50 Output: Urine 450 425 Other: Voiding Method Indwelling Catheter Indwelling Catheter Indwelling Catheter - Exam Abdomen: Soft, nondistended, mild tenderness, dressing clean and dry - Labs CBC & Chem 7: 12/08/23 04:38 12/08/23 04:38 Labs: Abnormal Lab Results - Last 24 Hours (Table) 12/08/23 12/08/23 Range/Units 04:38 04:38 WBC 15.00 H (4.50-10.00) X 10*3/uL RBC 3.98 L (4.10-5.20) X 10*6/uL Hgb 10.9 L (12.0-15.0) g/dL Hct 34.2 L (37.2-46.3) % MCHC 31.9 L (32.0-37.0) g/dL RDW 14.6 H (11.5-14.5) % Immature Gran # 0.10 H (0.00-0.04) X 10*3/uL Neutrophils # 12.55 H (1.80-7.70) X 10*3/uL Anion Gap 12.50 H (4.00-12.00) mmol/L Calcium 8.5 L (8.7-10.3) mg/dL Assessment and Plan (1) Diverticulitis Narrative/Plan: Patient doing better today. Repeat CBC tomorrow. Continue clear liquids. Ambulate. Keep epidural till tomorrow. Current Visit: No Status: Acute Code(s): K57.92 - DVTRCLI OF INTEST, PART UNSP, W/O PERF OR ABSCESS W/O BLEED SNOMED Code(s): 152934988
[2023-12-08] MEDS: HYDROmorphone 1 MG/ML 1 ML SYRINGE IVP PRN (13:44)
--- NOTE | 2023-12-08 14:15 | P.PN ---
Subjective Progress Note Date: 12/08/23 Patient had another episode of emesis overnight, diet was downgraded back to n.p.o. surgery is primary, consider TPN if patient has expectation of longer duration of poor nutrition Gen: In NAD, non-toxic HEENT: normocephalic, atraumatic, hearing acuity is intant, mucous membranes moist CVS: perfusing all extremities well, no pitting edema, Respiratory: symmetric chest expansion, no accessory muscle use, GI: soft, NTTP, ND, : no suprapubic tenderness, no CVA tenderness MSK/Derm: no rashes, cyanosis Neuro: CN II-XII intact, no motor weakness, Psych: cooperative, euthymic mood, judgment and insight is intact Hospital Course: 53-year-old woman with medical history of fibromyalgia, depression, hyperlipidemia presented for evaluation of colostomy reversal. Patient had perforated diverticulitis and underwent diverting colostomy via surgery. She has no complaints at this time. Upon initial evaluation, patient is afebrile, 109/71, heart rate 58, 100% on 3 L nasal cannula. White blood cell count is elevated to 21.5. Basic metabolic panel is unremarkable. Patient underwent successful reversal of colostomy. Assessment/plan: Fibromyalgia Depression Hyperlipidemia History of CVA -Continue to hold Xarelto -Resume pravastatin -resume PPI -resume duloxetine -resume triamcinolone Note: these are all oral meds, and they are all okay to hold until patient can tolerate PO per primary team. Objective - Vital Signs Vital signs: Vital Signs Temp 98.2 F 12/08/23 07:21 Pulse 78 12/08/23 07:21 Resp 20 12/08/23 09:08 BP 144/82 12/08/23 07:21 Pulse Ox 93 L 12/08/23 07:21 FiO2 Intake & Output 12/07/23 12/08/23 12/08/23 18:59 06:59 18:59 Intake Total 342.883 235.95 100 Output Total 450 425 Balance -107.117 -189.05 100 Intake: Intake, IV Titration 242.883 235.95 Amount Ropivacaine 250 mg 242.883 235.95 Hydromorphone (Pf) 5 mg In Sodium Chloride 0.9% 200 ml @ Per Protocol EPIDURAL .Q0M PRN Rx#: [id number] Oral 100 100 Output: Urine 450 425 Other: Voiding Method Indwelling Catheter Indwelling Catheter Indwelling Catheter - Labs CBC & Chem 7: 12/08/23 04:38 12/08/23 04:38 Labs: Abnormal Lab Results - Last 24 Hours (Table) 12/08/23 12/08/23 Range/Units 04:38 04:38 WBC 15.00 H (4.50-10.00) X 10*3/uL RBC 3.98 L (4.10-5.20) X 10*6/uL Hgb 10.9 L (12.0-15.0) g/dL Hct 34.2 L (37.2-46.3) % MCHC 31.9 L (32.0-37.0) g/dL RDW 14.6 H (11.5-14.5) % Immature Gran # 0.10 H (0.00-0.04) X 10*3/uL Neutrophils # 12.55 H (1.80-7.70) X 10*3/uL Anion Gap 12.50 H (4.00-12.00) mmol/L Calcium 8.5 L (8.7-10.3) mg/dL
--- NOTE | 2023-12-08 18:31 | P.PN ---
Progress Note - Text Progress Note Date: 12/08/23 Postoperative day #3 status post reversal colostomy epidural catheter placed for postoperative analgesia, patient doing well epidural site okay, patient currently on combination of epidural infusion solution of Ropivacaine 0.0625% and Dilaudid 20 g per mL the infusion rate at 13 ml per hour , patient had no motor deficit epidural site okay , patient had no motor deficit ,vital signs stable ,VAS 3-4 /10 , Assessment and plan= post operative day #3 patient doing well ,pain well co ntrolled , there is no anesthesia related complications
[2023-12-08] MEDS: KETOROLAC 15 MG/ML 1 ML VIAL IVP PRN (23:51)
[2023-12-09 08:41] LABS: Basophils # (A) 0.03 X 10*3/uL (0.00-0.10); Basophils % (A) 0.3 %; Eosinophils # (A) 0.39 X 10*3/uL (0.04-0.35); Eosinophils % (A) 3.7 %; HCT 32.1 % (37.2-46.3); HGB 10.7 g/dL (12.0-15.0); Lymphocytes # (A) 1.58 X 10*3/uL (0.90-5.00); Lymphocytes % (A) 14.8 %; MCH 27.6 pg (27.0-32.0); MCHC 33.3 g/dL (32.0-37.0); MCV 82.7 FL (80.0-97.0); Mean Platelet Volume 10.1 FL (9.5-12.2); Monocytes # (A) 0.56 X 10*3/uL (0.20-1.00); Monocytes % (A) 5.2 %; NRBC Per 100 WBC 0 X 10*3/uL (0.00-0.01); Neutrophils # (A) 8.06 X 10*3/uL (1.80-7.70); Neutrophils % (A) 75.5 %; Platelet Count 267 X 10*3/uL (140-440); RBC 3.88 X 10*6/uL (4.10-5.20); RDW 14.8 % (11.5-14.5); WBC 10.67 X 10*3/uL (4.50-10.00)
[2023-12-09 08:56] LABS: Blood Urea Nitrogen 10.5 mg/dL (9.0-27.0); Glucose 76 mg/dL (70-110)
[2023-12-09 08:57] LABS: Calcium 8.2 mg/dL (8.7-10.3); Carbon Dioxide 21.3 mmol/L (21.6-31.8); Chloride 102 mmol/L (96-109); Potassium 3.9 mmol/L (3.5-5.5); Sodium 137 mmol/L (135-145)
--- NOTE | 2023-12-09 13:00 | P.PN ---
Subjective Progress Note Date: 12/09/23 CHIEF COMPLAINT: history of diverticulitis HISTORY OF PRESENT ILLNESS: Postop day #4 status post reversal of colostomy. Epidural was accidentally pulled out this morning. But it was due to be removed. She had Calvin catheter removed today. She denies any nausea or vomiting. Denies any flatus. She has urinated. Afebrile. WBC is down from 15-10.67 PHYSICAL EXAM: VITAL SIGNS: Reviewed. GENERAL: Well-developed in no acute distress. ABDOMEN: Soft. Nondistended. Prevena wound VAC intact NEUROLOGIC: Alert and oriented. Cranial nerves II through XII grossly intact. ASSESSMENT: 1. History of diverticulitis status post colostomy reversal PLAN: -Epidural and Calvin catheter removed today -Continue pain management with IV Dilaudid and Toradol as needed for pain -Encourage patient to increase activity level -Encourage patient to use incentive spirometer -Continue clear liquid diet -GI prophylaxis Protonix and DVT prophylaxis subcu heparin Physician Sales And Leasing Agent note has been reviewed by physician. Signing provider agrees with the documented findings, assessment, and plan of care. Objective - Vital Signs Vital signs: Vital Signs Temp 97.8 F 12/09/23 07:55 Pulse 67 12/09/23 08:00 Resp 18 12/09/23 08:00 BP 162/89 12/09/23 07:55 Pulse Ox 93 L 12/09/23 07:55 FiO2 Intake & Output 12/08/23 12/09/23 12/09/23 18:59 06:59 18:59 Intake Total 200 Output Total 350 825 200 Balance -150 -825 -200 Intake: Oral 200 Output: Urine 350 825 200 Uretheral (Calvin) 100 Other: Voiding Method Indwelling Catheter Indwelling Catheter Bedside Commode - Labs CBC & Chem 7: 12/09/23 04:32 12/09/23 04:32 Labs: Abnormal Lab Results - Last 24 Hours (Table) 12/09/23 12/09/23 Range/Units 04:32 04:32 WBC 10.67 H (4.50-10.00) X 10*3/uL RBC 3.88 L (4.10-5.20) X 10*6/uL Hgb 10.7 L (12.0-15.0) g/dL Hct 32.1 L (37.2-46.3) % RDW 14.8 H (11.5-14.5) % Immature Gran # 0.05 H (0.00-0.04) X 10*3/uL Neutrophils # 8.06 H (1.80-7.70) X 10*3/uL Eosinophils # 0.39 H (0.04-0.35) X 10*3/uL Carbon Dioxide 21.3 L (21.6-31.8) mmol/L Anion Gap 13.70 H (4.00-12.00) mmol/L Calcium 8.2 L (8.7-10.3) mg/dL
--- NOTE | 2023-12-09 15:17 | P.PN ---
Subjective Progress Note Date: 12/09/23 Hospital course Patient is a 53-year-old woman with a past medical history of fibromyalgia, depression, hyperlipidemia who presented to the hospital for colostomy reversal. Patient had a perforated diverticulitis and underwent diverting colostomy. Patient had her surgery done. Patient seen this morning. She denies any acute complaints. She states that she is on Xarelto because of history of stroke. She denies any history of atrial fibrillation. 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 Psych - Calm and cooperative Assessment and plan Fibromyalgia, depression, hyperlipidemia, history of CVA -Please restart Xarelto when able to -Continue with home meds as appropriate Status post diverting colostomy reversal Patient has wound VAC As per your primary team management Patient started on clear liquid diet Acute blood loss anemia This is expected from surgery Hemoglobin is stable this morning Leukocytosis Likely reactive Trending down DVT prophylaxis: Patient on subcu heparin Objective - Vital Signs Vital signs: Vital Signs Temp 98.0 F 12/09/23 14:50 Pulse 63 12/09/23 14:50 Resp 18 12/09/23 14:50 BP 157/80 12/09/23 14:50 Pulse Ox 98 12/09/23 14:50 FiO2 Intake & Output 12/08/23 12/09/23 12/09/23 18:59 06:59 18:59 Intake Total 200 Output Total 350 825 600 Balance -150 -825 -600 Intake: Oral 200 Output: Urine 350 825 600 Uretheral (Calvin) 100 Other: Voiding Method Indwelling Catheter Indwelling Catheter Bedside Commode - Labs CBC & Chem 7: 12/09/23 04:32 12/09/23 04:32 Labs: Abnormal Lab Results - Last 24 Hours (Table) 12/09/23 12/09/23 Range/Units 04:32 04:32 WBC 10.67 H (4.50-10.00) X 10*3/uL RBC 3.88 L (4.10-5.20) X 10*6/uL Hgb 10.7 L (12.0-15.0) g/dL Hct 32.1 L (37.2-46.3) % RDW 14.8 H (11.5-14.5) % Immature Gran # 0.05 H (0.00-0.04) X 10*3/uL Neutrophils # 8.06 H (1.80-7.70) X 10*3/uL Eosinophils # 0.39 H (0.04-0.35) X 10*3/uL Carbon Dioxide 21.3 L (21.6-31.8) mmol/L Anion Gap 13.70 H (4.00-12.00) mmol/L Calcium 8.2 L (8.7-10.3) mg/dL
[2023-12-10] MEDS ORDERED: diphenhydrAMINE 25 MG CAP PO PRN (08:55)
[2023-12-10 08:58] VITALS: TEMP 97.8
--- NOTE | 2023-12-10 09:13 | P.DS ---
Providers Date of admission: 12/05/23 06:48 Expected date of discharge: 12/10/23 Attending physician: Ben Greenberg Consults: 12/05/23 10:32 Consult Physician Routine Consulting Provider: Shruthi Montenegro Consult Reason/Comments: medical management Do you want consulting provider notified?: Yes Primary care physician: Suleiman [facility] Course: Discharge diagnosis 1. History of diverticulitis status post colostomy reversal 2. Dermatitis rash of the back Hospital course This is a 53-year-old female with a history of diverticulitis. She is status post colostomy reversal. Her pain is controlled. She is tolerating diet. She did have a bowel movement. She has been ambulating. She is afebrile. She is stable for discharge. Please refer to chart for any further details. Physician Oracle [employer] Consultant note has been reviewed by physician. Signing provider agrees with the documented findings, assessment, and plan of care. Patient Condition at Discharge: Stable Plan - Discharge Summary Discharge Rx Participant: No New Discharge Prescriptions: New Ibuprofen [Motrin] 600 mg PO Q8HR PRN #30 tab PRN Reason: Pain oxyCODONE HCL [OxyIR] 5 mg PO Q6H PRN 3 Days #12 tab PRN Reason: Pain Acetaminophen Tab [Tylenol] 1,000 mg PO Q6HR PRN #30 tablet PRN Reason: Pain Continue DULoxetine HCL [Cymbalta] 60 mg PO DAILY Pravastatin Sodium [Pravachol] 80 mg PO HS Docusate [Colace] 100 mg PO BID #60 cap Pantoprazole [Protonix] 40 mg PO AC-BRKFST #60 tab Triamcinolone 0.1% Cream [Kenalog 0.1% Cream] 1 applicatio TOPICAL BID Rivaroxaban [Xarelto] 2.5 mg PO BID Discharge Medication List DULoxetine HCL [Cymbalta] 60 mg PO DAILY 01/20/20 [History] Pravastatin Sodium [Pravachol] 80 mg PO HS 08/24/23 [History] Rivaroxaban [Xarelto] 2.5 mg PO BID 08/24/23 [History] Triamcinolone 0.1% Cream [Kenalog 0.1% Cream] 1 applicatio TOPICAL BID 08/24/23 [History] Docusate [Colace] 100 mg PO BID #60 cap 09/15/23 [Rx] Pantoprazole [Protonix] 40 mg PO AC-BRKFST #60 tab 09/15/23 [Rx] Acetaminophen Tab [Tylenol] 1,000 mg PO Q6HR PRN #30 tablet 12/10/23 [Rx] Ibuprofen [Motrin] 600 mg PO Q8HR PRN #30 tab 12/10/23 [Rx] oxyCODONE HCL [OxyIR] 5 mg PO Q6H PRN 3 Days #12 tab 12/10/23 [Rx] Follow up Appointment(s)/Referral(s): Ben Greenberg MD [STAFF PHYSICIAN] - 1 Week Activity/Diet/Wound Care/Special Instructions: No driving while taking OxyIR No lifting over 10 pounds Shower daily. No soaking or tub baths for 2 weeks Very light activity until you are reevaluated at your follow up appointment with your surgeon Continue a full liquid diet over the next couple of days and then advance as tolerated Use Benadryl [id number] as needed for rash Discharge Disposition: HOME SELF-CARE
[2023-12-10] MEDS: diphenhydrAMINE 50 MG CAP PO STA (09:26)
[2023-12-10 09:27] LABS: Basophils # (A) 0.05 X 10*3/uL (0.00-0.10); Basophils % (A) 0.4 %; Eosinophils # (A) 0.38 X 10*3/uL (0.04-0.35); Eosinophils % (A) 3.2 %; HCT 31.9 % (37.2-46.3); HGB 10.4 g/dL (12.0-15.0); Lymphocytes # (A) 2.47 X 10*3/uL (0.90-5.00); Lymphocytes % (A) 20.9 %; MCH 27.7 pg (27.0-32.0); MCHC 32.6 g/dL (32.0-37.0); MCV 85.1 FL (80.0-97.0); Mean Platelet Volume 9.7 FL (9.5-12.2); Monocytes # (A) 0.65 X 10*3/uL (0.20-1.00); Monocytes % (A) 5.5 %; NRBC Per 100 WBC 0 X 10*3/uL (0.00-0.01); Neutrophils # (A) 8.19 X 10*3/uL (1.80-7.70); Neutrophils % (A) 69.2 %; Platelet Count 292 X 10*3/uL (140-440); RBC 3.75 X 10*6/uL (4.10-5.20); RDW 14.6 % (11.5-14.5); WBC 11.83 X 10*3/uL (4.50-10.00)
[2023-12-10] MEDS: HYDROcodone/APAP 5-325MG 1 EACH TAB PO PRN (09:35)
[2023-12-10 15:21] VITALS: BP 160/70; PULSE 67; RESP 16
--- NOTE | 2023-12-23 12:32 | CDI ---
Documentation Clarification Form Date: 12/23/2023 11:45:13 AM From: Va Keenan Phone: Admit Date: 12/05/2023 06:48:00 AM Patient Name: Carie Ivory Visit Number: [id number] Discharge Date: 12/10/2023 03:28:00 PM ATTENTION: The Clinical Documentation Specialists (CDI) and [facility] Coding Staff appreciate your assistance in clarifying documentation. Please respond to the clarification below the line at the bottom and electronically sign. The CDI & [facility] Coding staff will review the response and follow-up if needed. Please note: Queries are made part of the Legal Health Record. If you have any questions, please contact the author of this message via ITS. Dr. Ben Greenberg There is documentation of reversalcolostomy and takedownof splenic flexure per OP Note 12/04. Additional clarification is requested. History/Risk Factors: Hx perforated diverticulitissp colostomyw reversal, dermatitisrashof the back, ABLA, smoker Clinical Indicators: Colon, Segmental Resection Colon; Colon, Segmental Resection - Rectum Treatment: Herpainis controlled. She is tolerating diet. She did have a bowel movement. She has been ambulating. She is afebrile. She is stable for discharge. Please refer to chart for any further details. Can you please clarify the approach? [ ] Open Approach [ ] Percutaneous Endoscopic Approach [ ] Other, please specify [ ] Unable to determine (Template Last Revised: September 2020) MTDD
== END 2023-12-10 15:28 | disposition home or self-care (01) | DRG 330 ==
LOC: 2ORMAIN 06:48 → EDSTATUS 09:40 → 4SSUR 10:51
PROVIDERS: ADMIT Surgery; ATTEND Surgery
PROC: 0DNW0ZZ Release Peritoneum, Open Approach (ICD-10-PCS; 2023-12-05)
PROC: 3E0R3BZ Introduction of Anesthetic Agent into Spinal Canal, Percutaneous Approach (ICD-10-PCS; 2023-12-05)
PROC: 00HU33Z Insertion of Infusion Device into Spinal Canal, Percutaneous Approach (ICD-10-PCS; 2023-12-05)
PROC: 0DBN0ZZ Excision of Sigmoid Colon, Open Approach (ICD-10-PCS; principal; 2023-12-05 08:40)
DX: Z43.3 Encounter for attention to colostomy (principal); D62 Acute posthemorrhagic anemia; I69.351 Hemiplegia and hemiparesis following cerebral infarction affecting right dominant side; F32.A Depression, unspecified; I69.311 Memory deficit following cerebral infarction; M79.7 Fibromyalgia; E78.5 Hyperlipidemia, unspecified; N73.6 Female pelvic peritoneal adhesions (postinfective); D72.828 Other elevated white blood cell count; L30.9 Dermatitis, unspecified; M21.371 Foot drop, right foot; F17.210 Nicotine dependence, cigarettes, uncomplicated; R11.2 Nausea with vomiting, unspecified; Z87.19 Personal history of other diseases of the digestive system; Z79.01 Long term (current) use of anticoagulants; Z79.899 Other long term (current) drug therapy
CPT/HCPCS: 80048; 80053; 81025; 85025; 85610; 88307; 94760

== ENCOUNTER → 2024-05-20 | Outpatient (CLI) | payer BC ==
--- NOTE | 2024-05-24 09:13 | CT ---
EXAMINATION TYPE: CT abdomen pelvis w con DATE OF EXAM: 05/20/2024 5:22 PM COMPARISON: None. CLINICAL INDICATION: Female, 53 years old with history of R10.32 LEFT LOWER QUADRANT PAIN, LLQ pain x 3 wks. Hx of ostomy/ostomy reversal. TECHNIQUE: Axial images were obtained from above the diaphragm to the pubic rami in the axial plane a t 5 mm thick sections. Reconstructed images are reviewed on the computer in the coronal plane. CONTRAST: 100ml mL of Isovue 300. Study performed with Oral Contrast DLP: 584.7 mGycm, Automated exposure control for dose reduction was used. FINDINGS: Limited CT sections are obtained the lung bases. The lung bases are clear. CT ABDOMEN: Liver: There is mild diffuse fatty infiltration in the liver. Spleen: Normal Pancreas: Normal Adrenal glands: The adrenal glands are normal. Gallbladder: Gallstone is present Kidneys: No masses are evident. No hydronephrosis is present. No cysts are present. Punctate nonob structing renal stones at the inferior pole left kidney Delayed images were obtained through the kidn eys, which remain unremarkable. Aorta: Vascular calcification is within the aorta. Inferior vena cava: Normal. CT PELVIS: There is a left anterior pelvic wall hernia containing mesenteric fat with an opening of 0 .8 cm. Loops of bowel within the abdomen and pelvis are normal. Oral contrast extends to the proximal trans verse colon. There are loops of bowel which are incompletely distended or lack oral contrast limiti ng their evaluation. Appendix: Normal as visualized. Urinary bladder: Unremarkable. Genitourinary structures: Uterus and ovaries appear unremarkable. Osseous structures: No suspicious lytic or sclerotic lesions. IMPRESSION: 1. Small anterior left lower pelvic anterior wall hernia containing mesenteric fat prior at ostomy s ite. 2. Nonobstructing punctate renal stone inferior pole left kidney. 3. Cholelithiasis. 4. Mild fatty infiltration of liver [facility], , 05/24/2024 9:11 AM
== END | disposition home or self-care (01) ==
LOC: RADCTMAIN 15:28
PROVIDERS: ATTEND Surgery
DX: K76.0 Fatty (change of) liver, not elsewhere classified (principal); K80.20 Calculus of gallbladder without cholecystitis without obstruction; N20.0 Calculus of kidney; K43.9 Ventral hernia without obstruction or gangrene
CPT/HCPCS: 74177; Q9967

== ENCOUNTER → 2024-06-04 | Outpatient (CLI) | payer BC ==
[2024-06-04 16:34] LABS: INR 0.9 (<1.2); Partial Thromboplastin Time 25.6 sec (22.0-30.0)
[2024-06-04 20:10] LABS: Basophils # (A) 0.06 X 10*3/uL (0.00-0.10); Basophils % (A) 0.6 %; Eosinophils # (A) 0.27 X 10*3/uL (0.04-0.35); Eosinophils % (A) 2.8 %; HCT 43.7 % (37.2-46.3); Lymphocytes # (A) 3.16 X 10*3/uL (0.90-5.00); Lymphocytes % (A) 32.9 %; MCH 27.5 pg (27.0-32.0); MCV 85.7 FL (80.0-97.0); Mean Platelet Volume 10.3 FL (9.5-12.2); Monocytes # (A) 0.41 X 10*3/uL (0.20-1.00); Monocytes % (A) 4.3 %; NRBC Per 100 WBC 0 X 10*3/uL (0.00-0.01); Neutrophils # (A) 5.67 X 10*3/uL (1.80-7.70); Neutrophils % (A) 59.1 %; Platelet Count 272 X 10*3/uL (140-440); RDW 15.4 % (11.5-14.5)
[2024-06-04 21:02] LABS: Appearance,Urine Clear (Clear); Bilirubin,Urine Negative (Negative); Blood,Urine Negative (Negative); Color,Urine Yellow (Yellow); Ketones,Urine Negative (Negative); Nitrite,Urine Negative (Negative); PH, Urine 5.5; Specific Gravity,Urine 1.016 (1.001-1.030); Urobilinogen,Urine 0.2 E.U./DL
== END | disposition home or self-care (01) ==
LOC: LABWHC1 15:17
PROVIDERS: ATTEND Family Medicine
DX: Z01.818 Encounter for other preprocedural examination (principal)
CPT/HCPCS: 36415; 81003; 82465; 84443; 85025; 85610; 85730

== ENCOUNTER → 2024-06-04 | Outpatient (CLI) | payer BC ==
--- NOTE | 2024-06-05 10:42 | XR ---
EXAMINATION TYPE: XR chest 2V DATE OF EXAM: 06/04/2024 CLINICAL HISTORY: Z01.89 ENCOUNTER FOR OTHER SPECIFIED SPECIAL EXAMI TECHNIQUE: Frontal and lateral views of the chest are obtained. COMPARISON: 12/11/2018 FINDINGS: There is no focal air space opacity, pleural effusion, or pneumothorax seen. The cardiac silhouette size is within normal limits. The osseous structures are intact. IMPRESSION: No acute cardiopulmonary process. [facility], , 06/05/2024 10:40 AM
== END | disposition home or self-care (01) ==
LOC: RADXRMAIN 15:34
PROVIDERS: ATTEND Family Medicine
DX: Z01.89 Encounter for other specified special examinations (principal)
CPT/HCPCS: 71046

== ENCOUNTER 2024-06-07 13:33 | Emergency (ER) | payer BC ==
--- NOTE | 2024-06-07 15:17 | ED ---
Abdominal Pain HPI - General Chief Complaint: Abdominal Pain Stated Complaint: Abd pain Time Seen by Provider: 06/07/24 15:14 Source: patient, RN notes reviewed Mode of arrival: ambulatory Limitations: no limitations - History of Present Illness Initial Comments: 53-year-old female with history of hernia presenting with left lower quadrant abdominal pain x 3 weeks. States she has been following with Dr. Greenberg for hernia and left lower quadrant at site of previous bowel resection. States pain has been worsening over the course of 3 weeks. She states her surgery was scheduled for today, however was canceled due to paperwork/insurance issues. Denies nausea, vomiting, urinary symptoms, constipation, diarrhea. Takes Xarelto. - Related Data Home Medications Medication Instructions Recorded Confirmed Pravastatin Sodium [Pravachol] 80 mg PO HS 08/24/23 06/03/24 Rivaroxaban [Xarelto] 2.5 mg PO BID 08/24/23 06/03/24 Triamcinolone 0.1% Cream [Kenalog 1 applicatio TOPICAL BID 08/24/23 06/03/24 0.1% Cream] Previous Rx's Medication Instructions Recorded Docusate [Colace] 100 mg PO BID #60 cap 09/15/23 Acetaminophen Tab [Tylenol] 1,000 mg PO Q6HR PRN #30 tablet 12/10/23 Ibuprofen [Motrin] 600 mg PO Q8HR PRN #30 tab 12/10/23 Allergies Allergy/AdvReac Type Severity Reaction Status Date / Time cephalexin [From Keflex] Allergy Rash/Hives Verified 06/07/24 13:46 Review of Systems ROS Statement: Those systems with pertinent positive or pertinent negative responses have been documented in the HPI. ROS Other: All systems not noted in ROS Statement are negative. 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 Diverticulitis, colitis, bowel obstruction Aug 2023, hernia History of Any Multi-Drug Resistant Organisms: None Reported Past Surgical History: Bowel Resection, Tubal Ligation Additional Past Surgical History / Comment(s): laparoscopy, colonoscopy 2 yrs ago, EGD 4 yrs ago, SHIN procedure with colostomy Aug 2023. colostomy reversal November 2023. Past Anesthesia/Blood Transfusion Reactions: No Reported Reaction Past Psychological History: Anxiety, Depression Smoking Status: Current every day smoker Past Alcohol Use History: None Reported Past Drug Use History: None Reported - Past Family History Mother Family Medical History: No Reported History Father Additional Family Medical History / Comment(s): hemorrhagic stroke General Exam Limitations: no limitations General appearance: alert, in no apparent distress Respiratory exam: Present: normal lung sounds bilaterally. Absent: respiratory distress, wheezes, rales, rhonchi, stridor Cardiovascular Exam: Present: regular rate, normal rhythm, normal heart sounds. Absent: systolic murmur, diastolic murmur, rubs, gallop, clicks GI/Abdominal exam: Present: soft, tenderness (Left lower quadrant tenderness to palpation overlying well-healed horizontal incision), normal bowel sounds, hernia. Absent: distended, guarding, rebound, rigid Back exam: Present: normal inspection Neurological exam: Present: alert, oriented X3 Psychiatric exam: Present: normal affect, normal mood Skin exam: Present: warm, dry, intact, normal color. Absent: rash Course Vital Signs 06/07/24 06/07/24 13:42 17:57 Temperature 97.6 F 97.8 F Pulse Rate 70 58 L Respiratory 18 12 Rate Blood Pressure 113/69 101/64 O2 Sat by Pulse 98 99 Oximetry Medical Decision Making - Medical Decision Making Was pt. sent in by a medical professional or institution (, PA, CUSTOMER ENERGY SPECIALIST, urgent care, hospital, or penitentiary...) When possible be specific @ -No Did you speak to anyone other than the patient for history (EMS, parent, family, police, friend...)? What history was obtained from this source @ -No Did you review nursing and triage notes (agree or disagree)? Why? @ -I reviewed and agree with nursing and triage notes Were old charts reviewed (outside hosp., previous admission, EMS record, old EKG, old radiological studies, urgent care reports/EKG's, penitentiary records)? Report findings @ -No old charts were reviewed Differential Diagnosis (chest pain, altered mental status, abdominal pain women, abdominal pain men, vaginal bleeding, weakness, fever, dyspnea, syncope, headache, dizziness, GI bleed, back pain, seizure, CVA, palpatations, mental health, musculoskeletal)? @ -Differential Abdominal Pain Women: Appendicitis, Cholecystitis, diverticulosis, ischemic bowel, pancreatitis, hepatitis, UTI, gastroenteritis, AAA, incarcerated hernia, bowel obstruction, constipation, inflammatory bowel, hepatitis, peptic ulcer disease, splenic infarction, perforated viscus, vulvitis, ovarian torsion, PID, kidney stone, placenta abruption, this is not meant to be an all-inclusive list EKG interpreted by me (3pts min.). @ -None X-rays interpreted by me (1pt min.). @ -None done CT interpreted by me (1pt min.). @ -CT abdomen pelvis reveals single large gallstone, 4.6 mm nonobstructing left renal calculus, otherwise no acute changes U/S interpreted by me (1pt. min.). @ -None done What testing was considered but not performed or refused? (CT, X-rays, U/S, labs)? Why? @ -None What meds were considered but not given or refused? Why? @ -None Did you discuss the management of the patient with other professionals (professionals i.e. , PA, CUSTOMER ENERGY SPECIALIST, lab, RT, psych nurse, social welfare administrator, volunteer patient representative, teacher, tax compliance officer, cyanide case hardener)? Give summary @ -I spoke with Dr. Greenberg who recommends discharge with outpatient follow-up tomorrow Was smoking cessation discussed for >3mins.? @ -No Was critical care preformed (if so, how long)? @ -No Were there social determinants of health that impacted care today? How? (Homelessness, low income, unemployed, alcoholism, drug addiction, transpor tation, low edu. Level, literacy, decrease access to med. care, care home, rehab)? @ -No Was there de-escalation of care discussed even if they declined (Discuss DNR or withdrawal of care, Hospice)? DNR status @ -No What co-morbidities impacted this encounter? (DM, HTN, Smoking, COPD, CAD, Cancer, CVA, ARF, Chemo, Hep., AIDS, mental health diagnosis, sleep apnea, morbid obesity)? @ -None Was patient admitted / discharged? Hospital course, mention meds given and route, prescriptions, significant lab abnormalities, going to OR and other pertinent info. @ -Discharge. This is a 53-year-old female with history of ventral hernia presenting with left lower quadrant abdominal pain x 3 weeks. Vital signs are within acceptable limits. There is mild pain to palpation in left lower quadrant of abdomen. Analgesics were provided for supportive care. Lab work unremarkable. Urinalysis unremarkable. CT abdomen pelvis reveals no acute changes. I spoke with Dr. Gerenberg who recommends discharge with outpatient follow-up in his office tomorrow. Patient is agreeable to plan. Appropriate return precautions discussed with patient. Case was discussed with my ED attending Dr. Jiménez. Undiagnosed new problem with uncertain prognosis? @ -No Drug Therapy requiring intensive monitoring for toxicity (Heparin, Nitro, Insulin, Cardizem)? @ -No Were any procedures done? @ -No Diagnosis/symptom? @ -Ventral hernia Acute, or Chronic, or Acute on Chronic? @ -Acute Uncomplicated (without systemic symptoms) or Complicated (systemic symptoms)? @ -Uncomplicated Side effects of treatment? @ -No Exacerbation, Progression, or Severe Exacerbation? @ -No Poses a threat to life or bodily function? How? (Chest pain, USA, MS, pneumonia, PE, COPD, DKA, ARF, appy, cholecystitis, CVA, Diverticulitis, Homicidal, Bull icidal, threat to staff... and all critical care pts) @ -Not at this time - Lab Data Result diagrams: 06/07/24 15:33 06/07/24 16:43 Lab Results 06/07/24 06/07/24 06/07/24 Range/Units 15:33 15:33 15:34 WBC 10.3 (3.8-10.6) k/uL RBC 5.42 H (3.80-5.40) m/uL Hgb 15.3 (11.4-16.0) gm/dL Hct 45.9 (34.0-46.0) % MCV 84.5 (80.0-100.0) fL MCH 28.2 (25.0-35.0) pg MCHC 33.3 (31.0-37.0) g/dL RDW 15.0 (11.5-15.5) % Plt Count 269 (150-450) k/uL MPV 7.1 Neutrophils % 66 % Lymphocytes % 26 % Monocytes % 3 % Eosinophils % 3 % Basophils % 1 % Neutrophils # 6.8 (1.3-7.7) k/uL Lymphocytes # 2.7 (1.0-4.8) k/uL Monocytes # 0.3 (0-1.0) k/uL Eosinophils # 0.3 (0-0.7) k/uL Basophils # 0.1 (0-0.2) k/uL Sodium (137-145) mmol/L Potassium (3.5-5.1) mmol/L Chloride (98-107) mmol/L Carbon Dioxide (22-30) mmol/L Anion Gap mmol/L BUN (7-17) mg/dL Creatinine (0.52-1.04) mg/dL Est GFR (CKD-EPI)AfAm (>60 ml/min/1.73 sqM) Est GFR (CKD-EPI)NonAf (>60 ml/min/1.73 sqM) Glucose (74-99) mg/dL Plasma Lactic Acid Gerald 1.3 (0.7-2.0) mmol/L Calcium (8.4-10.2) mg/dL Total Bilirubin (0.2-1.3) mg/dL AST (14-36) U/L ALT (4-34) U/L Alkaline Phosphatase (38-126) U/L Total Protein (6.3-8.2) g/dL Albumin (3.5-5.0) g/dL Urine Color Colorless Urine Appearance Clear (Clear) Urine pH 6.5 (5.0-8.0) Ur Specific Hinkle 1.005 (1.001-1.035) Urine Protein Negative (Negative) Urine Glucose (UA) Negative (Negative) Urine Ketones Negative (Negative) Urine Blood Negative (Negative) Urine Nitrite Negative (Negative) Urine Bilirubin Negative (Negative) Urine Urobilinogen <2.0 (<2.0) mg/dL Ur Leukocyte Esterase Negative (Negative) 06/07/24 Range/Units 16:43 WBC (3.8-10.6) k/uL RBC (3.80-5.40) m/uL Hgb (11.4-16.0) gm/dL Hct (34.0-46.0) % MCV (80.0-100.0) fL MCH (25.0-35.0) pg MCHC (31.0-37.0) g/dL RDW (11.5-15.5) % Plt Count (150-450) k/uL MPV Neutrophils % % Lymphocytes % % Monocytes % % Eosinophils % % Basophils % % Neutrophils # (1.3-7.7) k/uL Lymphocytes # (1.0-4.8) k/uL Monocytes # (0-1.0) k/uL Eosinophils # (0-0.7) k/uL Basophils # (0-0.2) k/uL Sodium 137 (137-145) mmol/L Potassium 4.1 (3.5-5.1) mmol/L Chloride 110 H (98-107) mmol/L Carbon Dioxide 22 (22-30) mmol/L Anion Gap 5 mmol/L BUN 9 (7-17) mg/dL Creatinine 0.74 (0.52-1.04) mg/dL Est GFR (CKD-EPI)AfAm >90 (>60 ml/min/1.73 sqM) Est GFR (CKD-EPI)NonAf >90 (>60 ml/min/1.73 sqM) Glucose 84 (74-99) mg/dL Plasma Lactic Acid Gerald (0.7-2.0) mmol/L Calcium 9.2 (8.4-10.2) mg/dL Total Bilirubin 0.6 (0.2-1.3) mg/dL AST 21 (14-36) U/L ALT 19 (4-34) U/L Alkaline Phosphatase 66 (38-126) U/L Total Protein 6.5 (6.3-8.2) g/dL Albumin 3.8 (3.5-5.0) g/dL Urine Color Urine Appearance (Clear) Urine pH (5.0-8.0) Ur Specific Hinkle (1.001-1.035) Urine Protein (Negative) Urine Glucose (UA) (Negative) Urine Ketones (Negative) Urine Blood (Negative) Urine Nitrite (Negative) Urine Bilirubin (Negative) Urine Urobilinogen (<2.0) mg/dL Ur Leukocyte Esterase (Negative) Disposition Clinical Impression: Abdominal hernia Disposition: HOME SELF-CARE Condition: Stable Instructions (If sedation given, give patient instructions): Ventral Hernia (ED) Additional Instructions: Follow-up with Dr. Greenberg tomorrow as discussed. Take Tylenol threes as needed for pain. Please return to the Emergency Department if symptoms worsen or any other concerns. Is patient prescribed a controlled substance at d/c from ED?: No Referrals: Suleiman aPrsons DO [Primary Care Provider] - 1-2 days Ben Greenberg MD [STAFF PHYSICIAN] - 1-2 days Time of Disposition: 18:21
[2024-06-07] MEDS: ONDANSETRON 4 MG/2 ML VIAL IVP STA (15:34)
[2024-06-07] MEDS: MORPHINE SULFATE 4 MG/ML SYRINGE IVP STA (15:35)
[2024-06-07] MEDS: SODIUM CHLORIDE 0.9% 1,000 ML IV STA (15:35)
[2024-06-07 15:43] LABS: Basophils # (A) 0.1 k/uL (0-0.2); Basophils % (A) 1 %; Eosinophils # (A) 0.3 k/uL (0-0.7); Eosinophils % (A) 3 %; HCT 45.9 % (34.0-46.0); HGB 15.3 gm/dL (11.4-16.0); Lymphocytes # (A) 2.7 k/uL (1.0-4.8); Lymphocytes % (A) 26 %; MCH 28.2 pg (25.0-35.0); MCHC 33.3 g/dL (31.0-37.0); MCV 84.5 fL (80.0-100.0); Mean Platelet Volume 7.1; Monocytes # (A) 0.3 k/uL (0-1.0); Monocytes % (A) 3 %; Neutrophils # (A) 6.8 k/uL (1.3-7.7); Neutrophils % (A) 66 %; Platelet Count 269 k/uL (150-450); RBC 5.42 m/uL (3.80-5.40); WBC 10.3 k/uL (3.8-10.6)
[2024-06-07 15:47] LABS: Appearance,Urine Clear (Clear); Bilirubin,Urine Negative (Negative); Blood,Urine Negative (Negative); Color,Urine Colorless; Glucose,Urine (UA) Negative (Negative); Ketones,Urine Negative (Negative); Leukocyte Esterase,Urine Negative (Negative); Nitrite,Urine Negative (Negative); PH, Urine 6.5 (5.0-8.0); Protein,Urine Negative (Negative); Specific Gravity,Urine 1.005 (1.001-1.035); Urobilinogen,Urine <2.0 mg/dL (<2.0)
--- NOTE | 2024-06-07 16:37 | CT ---
EXAMINATION TYPE: CT abdomen pelvis w con DATE OF EXAM: 06/07/2024 COMPARISON: 05/20/2024 CLINICAL INDICATION: Female, 53 years old with history of LLQ abd pain, hx hernia; PHH, LLQ abd pain, hx hernia TECHNIQUE: Performed without Oral Contrast and with IV Contrast, patient injected with 75ml mL of Isovue 300. CT DLP: 713.[address] CTDI: mGy Automated exposure control for dose reduction was used. FINDINGS: The lung bases are clear. There is a single large gallstone but no wall thickening or gallbladder distention. There is no bilia ry ductal dilatation. There is no focal mass or organomegaly involving the liver, pancreas, spleen or adrenal glands. There is no solid renal mass or hydronephrosis and there is homogeneous contrast enhancement of the r enal parenchyma. There is a nonobstructing 4.6 mm left renal calculus. The caliber the abdominal aort a is normal is no retroperitoneal adenopathy or hemorrhage. The bowel loops are normal in caliber and there is no evidence of dilatation or obstruction. No infla mmatory changes are identified in the bowel wall or mesentery. There is no free intraperitoneal air or fluid. No pelvic mass, free fluid, abscess or adenopathy. The osseous structures and soft tissues are intact. IMPRESSION: 1. Single large gallstone. 2. 4.6 mm nonobstructing left renal calculus. 3. No acute changes within the abdomen or pelvis. [facility], , 06/07/2024 4:34 PM
[2024-06-07 17:11] LABS: ALT 19 U/L (4-34); AST 21 U/L (14-36); African American GFR (CKD) >90 (>60 ml/min/1.73 sqM); Albumin 3.8 g/dL (3.5-5.0); Alkaline Phosphatase 66 U/L (38-126); Anion Gap 5 mmol/L; Blood Urea Nitrogen 9 mg/dL (7-17); Calcium 9.2 mg/dL (8.4-10.2); Carbon Dioxide 22 mmol/L (22-30); Chloride 110 mmol/L (98-107); Glucose 84 mg/dL (74-99); Non-African American GFR(CKD) >90 (>60 ml/min/1.73 sqM); Potassium 4.1 mmol/L (3.5-5.1); Sodium 137 mmol/L (137-145); Total Bilirubin 0.6 mg/dL (0.2-1.3); Total Protein 6.5 g/dL (6.3-8.2)
[2024-06-07] MEDS: MORPHINE SULFATE 2 MG/ML SYRINGE IVP ONE (17:44)
[2024-06-07 17:58] VITALS: BP 101/64; PULSE 58; RESP 12; TEMP 97.8
[2024-06-07] MEDS: ACET/COD 300 MG/30 MG STARTER PACK 6 TAB BTL PO STA (18:30)
== END 2024-06-07 18:35 | disposition home or self-care (01) ==
LOC: EC 13:33
DX: K46.9 Unspecified abdominal hernia without obstruction or gangrene (principal); K43.9 Ventral hernia without obstruction or gangrene; K80.20 Calculus of gallbladder without cholecystitis without obstruction; F17.200 Nicotine dependence, unspecified, uncomplicated; Z86.73 Personal history of transient ischemic attack (TIA), and cerebral infarction without residual deficits; Z88.1 Allergy status to other antibiotic agents
CPT/HCPCS: 36415; 80053; 83605; 85025; 81003; 74177; 99284; 96374; 96375; 96376; 96361; J2270 ×2; J2405; Q9967

== ENCOUNTER → 2024-07-29 | Outpatient (CLI) | payer BC ==
[2024-07-29 19:51] LABS: HCT 43.8 % (37.2-46.3); HGB 14.1 g/dL (12.0-15.0); MCH 27.9 pg (27.0-32.0); MCHC 32.2 g/dL (32.0-37.0); MCV 86.6 FL (80.0-97.0); Mean Platelet Volume 9.8 FL (9.5-12.2); NRBC Per 100 WBC 0 X 10*3/uL (0.00-0.01); Platelet Count 278 X 10*3/uL (140-440); RBC 5.06 X 10*6/uL (4.10-5.20); RDW 15.6 % (11.5-14.5); WBC 10.96 X 10*3/uL (4.50-10.00)
== END | disposition home or self-care (01) ==
LOC: LABPAT 13:22
PROVIDERS: ATTEND Surgery
DX: Z01.812 Encounter for preprocedural laboratory examination (principal); K43.9 Ventral hernia without obstruction or gangrene
CPT/HCPCS: 85027

== ENCOUNTER 2024-08-02 08:03 | Day surgery (SDC) | payer BC ==
[~2024-08-02 08:03] MED LIST changes: -HEPARIN SODIUM,PORCINE 5,000 UNIT/ML 1 ML VIAL SQ PRN; +LIDOCAINE 1% (10MG/ML) FOR IV START INTRADERMA PRN; +MIDAZOLAM 2 MG/2 ML VIAL IV PRN
[2024-08-02 08:56] VITALS: RESP 16
[2024-08-02] MEDS: IV FLUID CONTINUATION 1,000 ML IV ONE (09:00)
[2024-08-02] MEDS: LACTATED RINGERS 1,000 ML IV SCH (09:11)
[2024-08-02] MEDS: DEXAMETHASONE SOD PHOSPHATE 4 MG/ML 1 ML VIAL IV ONE (09:11)
[2024-08-02] MEDS: ACETAMINOPHEN TAB 500 MG TAB PO PRN (09:11)
[2024-08-02] MEDS: ONDANSETRON 4 MG/2 ML VIAL IVP ONE (09:11)
[2024-08-02] MEDS: HEPARIN SODIUM,PORCINE 5,000 UNIT/ML 1 ML VIAL SQ PRN (09:15)
--- NOTE | 2024-08-02 10:27 | P.GSHP ---
History of Present Illness H&P Date: 08/02/24 Chief Complaint: Incisional hernia This a 53-year-old female who has a history of perforated diverticulitis. Patient developed an incisional hernia at her old colostomy site. Sh she presents today for open repair. 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 Diverticulitis, colitis, bowel obstruction Aug 2023, hernia History of Any Multi-Drug Resistant Organisms: None Reported Past Surgical History: Bowel Resection, Tubal Ligation Additional Past Surgical History / Comment(s): laparoscopy, colonoscopy 2 yrs ago, EGD 4 yrs ago, SHIN procedure with colostomy Aug 2023. colostomy reversal November 2023. Past Anesthesia/Blood Transfusion Reactions: No Reported Reaction Smoking Status: Current every day smoker - Past Family History Mother Family Medical History: No Reported History Father Additional Family Medical History / Comment(s): hemorrhagic stroke Medications and Allergies Home Medications Medication Instructions Recorded Confirmed Type Pravastatin Sodium [Pravachol] 80 mg PO HS 08/24/23 08/02/24 History Triamcinolone 0.1% Cream [Kenalog 1 applicatio TOPICAL BID 08/24/23 08/02/24 History 0.1% Cream] Docusate [Colace] 100 mg PO BID #60 cap 09/15/23 08/02/24 Rx Acetaminophen Tab [Tylenol] 1,000 mg PO Q6HR PRN #30 tablet 12/10/23 08/02/24 Rx Ibuprofen [Motrin] 600 mg PO Q8HR PRN #30 tab 12/10/23 08/02/24 Rx Hydrocodone/Acetaminophen 1 tab PO Q6H PRN 07/28/24 08/02/24 History [Hydrocodone/Acetaminophen 7.5-325] Allergies Allergy/AdvReac Type Severity Reaction Status Date / Time cephalexin [From Keflex] Allergy Rash/Hives Verified 08/02/24 08:52 Surgical - Exam Vital Signs Temp Pulse Resp BP Pulse Ox 98.0 F 58 L 16 127/71 98 08/02/24 08:54 08/02/24 08:54 08/02/24 08:54 08/02/24 08:54 08/02/24 08:54 - General well developed, well nourished, no distress - Eyes PERRL - ENT normal pinna - Neck no masses - Respiratory normal expansion - Cardiovascular Rhythm: regular - Abdomen Incisional hernia at colostomy site. Abdomen: soft, non tender - Integumentary no rash Assessment and Plan Assessment: This is a hernia. Will perform repair
[2024-08-02] MEDS ORDERED: LIDOCAINE 1% INJ 10MG/ML (20 ML MDV) ONE (10:37)
[2024-08-02] MEDS ORDERED: PROPOFOL 10 MG/ML 20 ML VIAL IV ONE (10:37)
[2024-08-02] MEDS ORDERED: SUCCINYLCHOLINE CHLORIDE 200 MG/10 ML VIAL IV ONE (10:37)
[2024-08-02] MEDS ORDERED: MIDAZOLAM 2 MG/2 ML VIAL ONE (10:37)
[2024-08-02] MEDS ORDERED: ROCURONIUM 10 MG/ML (5 ML VIAL) IV ONE (10:37)
[2024-08-02] MEDS ORDERED: GLYCOPYRROLATE 0.2 MG/ML 2 ML VIAL ONE (10:37)
[2024-08-02] MEDS ORDERED: fentaNYL (PF) 50 MCG/ML 2 ML AMP ONE (10:37)
[2024-08-02] MEDS ORDERED: NEOSTIGMINE 1 MG/ML 10 ML VIAL ONE (10:37)
[2024-08-02 11:28] VITALS: TEMP 98.3
--- NOTE | 2024-08-02 11:42 | P.OP ---
Date of Procedure: 08/02/24 Preoperative Diagnosis: Incisional hernia Postoperative Diagnosis: Incisional hernia Procedure(s) Performed: Open pair of incisional hernia Partial omentectomy Anesthesia: RADHA Surgeon: Ben Greenberg Estimated Blood Loss (ml): 5 Pathology: none sent Condition: stable Disposition: PACU Description of Procedure: The patient was placed on the operative table in the supine position. She received general endotracheal tube anesthesia. Her abdomen was prepped and draped you sterile fashion. The skin was incised over the colostomy site there was a 10 cm hernia located at the colostomy site. Using blunt sharp/electrocautery the subcu tissues were divided. And then the hernia sac was opened. The incarcerated omentum and hernia sac were divided and sent to pathology. The fascial defect is closed with [id number] Ethibond suture in #1 STRATAFIX suture. The skin was then closed with michael. Patient tolerated well. She was sent to recovery in stable condition.
[2024-08-02] MEDS: HYDROmorphone 0.5 MG/0.5 ML SYRINGE IVP PRN (11:47)
[2024-08-02] MEDS: fentaNYL (PF) 50 MCG/ML 2 ML AMP IVP PRN (12:38)
[2024-08-02] MEDS: KETOROLAC 15 MG/ML 1 ML VIAL IVP STA (13:04)
[2024-08-02] MEDS: HYDROcodone/APAP 5-325MG 1 EACH TAB PO STA (14:02)
[2024-08-02 15:00] VITALS: BP 133/79; PULSE 70
== END 2024-08-02 15:10 | disposition home or self-care (01) ==
LOC: OR 08:03
PROVIDERS: ATTEND Surgery
DX: K43.2 Incisional hernia without obstruction or gangrene (principal); M79.7 Fibromyalgia; E78.5 Hyperlipidemia, unspecified; F17.210 Nicotine dependence, cigarettes, uncomplicated; Z86.73 Personal history of transient ischemic attack (TIA), and cerebral infarction without residual deficits; Z98.51 Tubal ligation status; Z93.3 Colostomy status; Z88.1 Allergy status to other antibiotic agents; Z79.899 Other long term (current) drug therapy
CPT/HCPCS: 49593; J2250; J0330; J1644; J1100; J2710; J0690; J2405; J2003; J3010; J1885; J2704; J1171; J1596; 88302

== ENCOUNTER 2024-09-24 07:02 | Day surgery (SDC) | payer BC ==
[~2024-09-24 07:02] MED LIST changes: -LIDOCAINE 1% (10MG/ML) FOR IV START INTRADERMA PRN
[2024-09-24] MEDS: IV FLUID CONTINUATION 1,000 ML IV ONE ×3 (07:25→12:40)
[2024-09-24] MEDS: ACETAMINOPHEN TAB 500 MG TAB PO PRN (07:43)
[2024-09-24] MEDS: HEPARIN SODIUM,PORCINE 5,000 UNIT/ML 1 ML VIAL SQ PRN (07:43)
[2024-09-24] MEDS: ONDANSETRON 4 MG/2 ML VIAL IVP ONE (07:44)
[2024-09-24] MEDS: DEXAMETHASONE SOD PHOSPHATE 4 MG/ML 1 ML VIAL IV ONE (07:44)
[2024-09-24] MEDS ORDERED: SUCCINYLCHOLINE CHLORIDE 200 MG/10 ML VIAL IV ONE (09:00)
[2024-09-24] MEDS ORDERED: LIDOCAINE 1% INJ 10MG/ML (20 ML MDV) ONE (09:00)
[2024-09-24] MEDS ORDERED: ROCURONIUM 10 MG/ML (5 ML VIAL) IV ONE (09:00)
[2024-09-24] MEDS ORDERED: NEOSTIGMINE 1 MG/ML 10 ML VIAL ONE (09:00)
[2024-09-24] MEDS ORDERED: fentaNYL (PF) 50 MCG/ML 2 ML AMP ONE (09:00)
[2024-09-24] MEDS ORDERED: GLYCOPYRROLATE 0.2 MG/ML 2 ML VIAL ONE (09:00)
[2024-09-24] MEDS ORDERED: LIDOCAINE 4% LTA KIT (4 ML) TOPICAL ONE (09:00)
[2024-09-24] MEDS ORDERED: PROPOFOL 10 MG/ML 20 ML VIAL IV ONE (09:00)
[2024-09-24] MEDS ORDERED: MIDAZOLAM 2 MG/2 ML VIAL ONE (09:00)
[2024-09-24] MEDS: BUPIVACAINE (PF) 0.25% 30 ML VIAL SQ ONE (09:34)
[2024-09-24] MEDS: HYDROmorphone 0.5 MG/0.5 ML SYRINGE IVP PRN (10:13)
--- NOTE | 2024-09-24 10:15 | P.OP ---
Date of Procedure: 09/24/24 Preoperative Diagnosis: Cholelithiasis Postoperative Diagnosis: cholelithiasis Procedure(s) Performed: Laparoscopic cholecystectomy Anesthesia: RADHA Surgeon: Ben Greenberg Estimated Blood Loss (ml): 5 Pathology: other (Gallbladder) Condition: stable Disposition: PACU Description of Procedure: The patient was placed on the operating table. The patient received a general endotracheal tube anesthesia. The patients abdomen was prepped and draped in the usual sterile fashion. The patient had a midline scar. Due to the midline scar the Veress needle was placed in the left upper quadrant just below the costal margin. The abdomen is insufflated. At this point a 5 mm optical trocar was placed in the right mid abdomen position. And then the laparoscope placed into the oral cavity. There were adhesions noted. The Veress needle was removed and a another 5 mm trocar was placed at the Veress needle site. Using the harmonic scissors the adhesions were lysed. Through an infraumbilical stab incision, the fascia of the anterior abdominal wall was grasped with a pair of Kochers an The abdomen was then insufflated. After adequate insufflation, the 10 mm trocar was placed in the peritoneal cavity. Following this the laparoscope was placed in the peritoneal cavity. The patient was placed in the head-up, right side up position and then a 5 mm trocar was placed in the right lateral and right subcostal position under direct visualization. A 8 mm trocar was placed in the epigastric position. The gallbladder was grasped in the fundus and infundibulum. Traction on the gallbladder was placed in the lateral and the cephalad positions. The triangle of Calot was visualized.. The cystic duct was bluntly dissected until the union of the cystic duct and common bile duct was seen. A critical view of safety was achieved. The cystic duct was then divided and sealed with the Harmonic scissors. A PDS Endoloop was then placed throughout the cystic duct stump. The cystic artery divided and sealed with the Harmonic scissors. The gallbladder was then removed from the liver bed using Harmonic scissors. The gallbladder was then extracted through the epigastric port site. Operative field was checked for any bleeding spots and Harmonic scissors was used to coagulate the liver bed. The abdomen was irrigated. The trocars were removed. The skin was closed using interrupted 3-0 Vicryl suture. Dermabond dressing were applied. The patient tolerated the procedure well.
[2024-09-24] MEDS: NITROGLYCERIN SL TABS 0.4 MG TAB SUBLINGUAL PRN (11:59)
--- NOTE | 2024-09-24 13:04 | P.CRDCN ---
History of Present Illness History of present illness: HISTORY OF PRESENT ILLNESS: This is a 54-year-old female with a past medical history significant for hyperlipidemia and nicotine dependence. Patient follows with a railroad firer out of [place]. We have been asked to see the patient in consultation for chest pain. Patient underwent laparoscopic cholecystectomy today with Dr. Greenberg secondary to cholelithiasis. Postoperatively the patient developed midsternal chest discomfort. She describes the pain as a pressure and currently rates it 4/10. She denies any radiation of the pain. An EKG was performed revealing sinus mechanism with T wave inversions in lateral leads which is new from previous EKGs. The patient does report that she had a stress test about a month ago performed somewhere on [address] and was told it was normal to her knowledge. She denies any known history of CAD. Bedside telemetry reveals sinus mechanism with a heart rate in the 50s60s. REVIEW OF SYSTEMS: At the time of my exam: CONSTITUTIONAL: Denies fever or chills. HEENT: Denies blurred vision, vision changes, or eye pain. Denies hemoptysis CARDIOVASCULAR: Denies chest pain. Denies orthopnea. Denies PND. Denies palpitations RESPIRATORY: Denies shortness of breath. GASTROINTESTINAL: Denies abdominal pain. Denies nausea or vomiting. HEMATOLOGIC: Denies bleeding disorders. GENITOURINARY: Denies any blood in urine. SKIN: Denies pruitis. Denies rash. PHYSICAL EXAM: VITAL SIGNS: Reviewed. GENERAL: Well-developed in no acute distress. HEENT: Head is normocephalic. Pupils are equal, round. Sclerae anicteric. Mucous membranes of the mouth are moist. Neck supple. No JVD or thyromegaly LUNGS: Respirations even and unlabored. Lungs essentially clear to auscultation bilaterally. HEART: Regular rate and rhythm. S1 and S2 heard. ABDOMEN: Soft. Nondistended. Nontender. EXTREMITIES: Normal range of motion. No clubbing or cyanosis. Peripheral pulses intact. No lower extremity edema NEUROLOGIC: Awake and alert. Oriented x 3. ASSESSMENT: Cholelithiasis, status post laparoscopic cholecystectomy Chest pain with abnormal EKG with T wave inversions in lateral leads Hyperlipidemia Nicotine dependence PLAN: Obtain troponin every 3 hours x 2 Give aspirin 325 mg x 1 Patient to receive sublingual nitro Further recommendations pending patient course Nurse practitioner note has been reviewed by physician. Signing provider agrees with the documented findings, assessment, and plan of care documented by MACHINE BUILDER as a scribe. 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 Diverticulitis, colitis, bowel obstruction Aug 2023, History of Any Multi-Drug Resistant Organisms: None Reported Past Surgical History: Bowel Resection, Hernia Repair, Tubal Ligation Additional Past Surgical History / Comment(s): laparoscopy, colonoscopy 2 yrs ago, EGD 4 yrs ago, SHIN procedure with colostomy Aug 2023. colostomy reversal November 2023.incisional hernia repair Past Anesthesia/Blood Transfusion Reactions: No Reported Reaction Additional Past Anesthesia/Blood Transfusion Reaction / Comment(s): no blood transfusions Smoking Status: Current every day smoker - Past Family History Mother Family Medical History: Cancer Additional Family Medical History / Comment(s): stage 4 lung cancer . blocked arteries in legs. Father Additional Family Medical History / Comment(s): hemorrhagic stroke Medications and Allergies Home Medications Medication Instructions Recorded Confirmed Type Triamcinolone 0.1% Cream [Kenalog 1 applicatio TOPICAL BID 08/24/23 09/24/24 History 0.1% Cream] Acetaminophen Tab [Tylenol] 1,000 mg PO Q6HR PRN #30 tablet 12/10/23 09/24/24 Rx Ibuprofen [Motrin] 600 mg PO Q6HR PRN #40 tab 08/02/24 09/24/24 Rx Docusate [Colace] 100 mg PO DAILY 09/23/24 09/24/24 History Rosuvastatin Calcium 10 mg PO HS 09/23/24 09/24/24 History Acetaminophen Tab [Tylenol] 650 mg PO Q6H #30 tab 09/24/24 Rx Docusate [Colace] 100 mg PO BID #20 capsule 09/24/24 Rx HYDROcodone/APAP 5-325MG [[place] 1 tab PO Q6HR PRN #10 tab 09/24/24 Rx 5-325] Ibuprofen [Motrin] 600 mg PO Q6HR PRN #40 tab 09/24/24 Rx Allergies Allergy/AdvReac Type Severity Reaction Status Date / Time cephalexin [From Keflex] Allergy Rash/Hives Verified 09/24/24 07:27 Physical Exam Vitals: Vital Signs Temp Pulse Resp BP Pulse Ox 09/24/24 12:45 55 L 14 97/57 98 09/24/24 12:30 65 16 108/60 100 09/24/24 12:15 66 16 95/63 99 09/24/24 12:00 60 16 119/70 99 09/24/24 11:45 59 L 14 103/62 100 09/24/24 11:30 55 L 14 116/67 100 09/24/24 11:15 57 L 16 111/64 99 09/24/24 11:00 63 14 106/58 100 09/24/24 10:45 52 L 12 111/60 100 09/24/24 10:30 53 L 14 111/68 99 09/24/24 10:15 60 14 121/62 99 09/24/24 10:00 97.6 F 72 18 113/95 92 L 09/24/24 07:48 97.6 F 60 16 140/74 99 Intake and Output 09/23/24 09/24/24 09/24/24 22:59 06:59 14:59 Intake Total 2049 Output Total 2044 Intake: IV 2049 Output: Estimated Blood Loss 5 Other: Weight 73.5 kg Results Current Medications Generic Name Dose Route Start Last Admin Trade Name Freq PRN Reason Stop Dose Admin Lactated Ringer's 1,000 mls @ 20 mls/hr 09/24/24 05:54 Lactated Ringers IV 10/24/24 05:53 .Q24H [facility] Midazolam HCl 2 mg 09/24/24 07:00 Midazolam 2 Mg/2 Ml Vial IV 09/24/24 23:00 ONCE PRN Pre-Op Anxiety Nitroglycerin 0.4 mg 09/24/24 11:57 09/24/24 12:35 Nitroglycerin Sl Tabs 0.4 Mg Tab SUBLINGUAL 10/24/24 11:56 0.4 mg Q5M PRN Administration Chest Pain Intake and Output 09/23/24 09/24/24 09/24/24 22:59 06:59 14:59 Intake Total 2049 Output Total 2044 Intake: IV 2049 Output: Estimated Blood Loss 5 Other: Weight 73.5 kg Patient Weight 09/25/24 06:59 Weight 73.5 kg
[2024-09-24] MEDS: HYDROcodone/APAP 5-325MG 1 EACH TAB PO STA (14:27)
[2024-09-24] MEDS: ASPIRIN 325 MG TAB PO ONE (19:21)
[2024-09-24] MEDS: LACTATED RINGERS 1,000 ML IV SCH (19:21)
[2024-09-24] MEDS: SCOPOLAMINE 1 MG/72 HR PATCH TRANSDERM ONE (19:21)
[2024-09-24] MEDS ORDERED: IBUPROFEN 600 MG TAB PO PRN (21:30)
[2024-09-24] MEDS ORDERED: ACETAMINOPHEN TAB 325 MG TAB PO PRN (21:30)
[2024-09-24] MEDS: ATORVASTATIN 20 MG TAB PO SCH (21:50)
[2024-09-24] MEDS: HYDROcodone/APAP 5-325MG 1 EACH TAB PO PRN (21:56)
[2024-09-25] MEDS: PANTOPRAZOLE 40 MG TABLET PO SCH (06:36)
[2024-09-25] MEDS: DOCUSATE 100 MG CAP PO SCH (06:38)
--- NOTE | 2024-09-25 08:28 | P.GSCN ---
History of Present Illness Consult date: 09/25/24 Reason for Consult: Chest pain History of present illness: This is a 54-year-old female who underwent uneventful laparoscopic cholecystectomy yesterday. Po patient developed left-sided chest pain postop. She has been eval by cardiology. It does not appear that she has had any significant cardiac event. 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 Diverticulitis, colitis, bowel obstruction Aug 2023, History of Any Multi-Drug Resistant Organisms: None Reported Past Surgical History: Bowel Resection, Hernia Repair, Tubal Ligation Additional Past Surgical History / Comment(s): laparoscopy, colonoscopy 2 yrs ago, EGD 4 yrs ago, SHIN procedure with colostomy Aug 2023. colostomy reversal November 2023.incisional hernia repair Past Anesthesia/Blood Transfusion Reactions: No Reported Reaction Additional Past Anesthesia/Blood Transfusion Reaction / Comm: no blood transfusions Smoking Status: Current every day smoker - Past Family History Mother Family Medical History: Cancer Additional Family Medical History / Comment(s): stage 4 lung cancer . blocked arteries in legs. Father Additional Family Medical History / Comment(s): hemorrhagic stroke Medications and Allergies Home Medications Medication Instructions Recorded Confirmed Type Triamcinolone 0.1% Cream [Kenalog 1 applicatio TOPICAL BID 08/24/23 09/24/24 History 0.1% Cream] Acetaminophen Tab [Tylenol] 1,000 mg PO Q6HR PRN #30 tablet 12/10/23 09/24/24 Rx Ibuprofen [Motrin] 600 mg PO Q6HR PRN #40 tab 08/02/24 09/24/24 Rx Docusate [Colace] 100 mg PO DAILY 09/23/24 09/24/24 History Rosuvastatin Calcium 10 mg PO HS 09/23/24 09/24/24 History Acetaminophen Tab [Tylenol] 650 mg PO Q6H #30 tab 09/24/24 Rx Docusate [Colace] 100 mg PO BID #20 capsule 09/24/24 Rx HYDROcodone/APAP 5-325MG [[place] 1 tab PO Q6HR PRN #10 tab 09/24/24 Rx 5-325] Ibuprofen [Motrin] 600 mg PO Q6HR PRN #40 tab 09/24/24 Rx Allergies Allergy/AdvReac Type Severity Reaction Status Date / Time cephalexin [From Keflex] Allergy Rash/Hives Verified 09/24/24 07:27 Surgical - Exam Vital Signs Temp Pulse Resp BP Pulse Ox 97.6 F 60 16 140/74 99 09/24/24 07:48 09/24/24 07:48 09/24/24 07:48 09/24/24 07:48 09/24/24 07:48 - General well developed, well nourished, no distress - Eyes PERRL - ENT normal pinna - Neck no masses - Respiratory normal expansion - Cardiovascular Rhythm: regular - Abdomen Incision sites are clean dry intact. Abdomen: soft Assessment and Plan Assessment: Status post laparoscopic cholecystectomy. Patient's chest pain has been eval by cardiology. She will be most likely be discharged home later today.
[2024-09-25] MEDS: ASPIRIN 81 MG PO SCH (08:48)
--- NOTE | 2024-09-25 09:59 | P.PN ---
Subjective HISTORY OF PRESENT ILLNESS: This is a 54-year-old female with a past medical history significant for hyperlipidemia and nicotine dependence. Patient follows with a control officer manager out of [place]. We have been asked to see the patient in consultation for chest pain. Patient underwent laparoscopic cholecystectomy today with Dr. Greenberg secondary to cholelithiasis. Postoperatively the patient developed midsternal chest discomfort. She describes the pain as a pressure and currently rates it 4/10. She denies any radiation of the pain. An EKG was performed revealing sinus mechanism with T wave inversions in lateral leads which is new from previous EKGs. The patient does report that she had a stress test about a month ago performed somewhere on [address] and was told it was normal to her knowledge. This stress test was performed due to preoperative clearance and not due to cardiac symptoms. She does report an extensive history of having diverticulitis and colitis. She did develop a bowel obstruction and required ostomy in 2023 with subsequent reversal. She denies any known history of CAD. Bedside telemetry reveals sinus mechanism with a heart rate in the 50s60s. Addendum entered and electronically signed by aKry Narvaez NP-C 09/24/24 13:39: Patient received nitro x 2 with relief of chest pain Spoke with nurse who states patient reports surgical pain but denies any further chest pain first troponin negative Nursing to page Dr. Nielsen with second troponin level and further recommendations will be made at that time If patient has further episodes of chest pain, notify Dr. Nielsen immediately 09/25/2024 Patient examined this morning at the bedside. Patient denies any further episodes of chest pain or pressure. She denies any shortness of breath. EKG performed this morning reveals sinus mechanism with no signs of acute ischemia. PHYSICAL EXAM: VITAL SIGNS: Reviewed. GENERAL: Well-developed in no acute distress. HEENT: Head is normocephalic. Pupils are equal, round. Sclerae anicteric. Mucous membranes of the mouth are moist. Neck supple. No JVD or thyromegaly LUNGS: Respirations even and unlabored. Lungs essentially clear to auscultation bilaterally. HEART: Regular rate and rhythm. S1 and S2 heard. ABDOMEN: Soft. Nondistended. Nontender. EXTREMITIES: Normal range of motion. No clubbing or cyanosis. Peripheral pulses intact. No lower extremity edema NEUROLOGIC: Awake and alert. Oriented x 3. ASSESSMENT: Cholelithiasis, status post laparoscopic cholecystectomy Chest pain with abnormal EKG with T wave inversions in lateral leads Hyperlipidemia Nicotine dependence PLAN: Patient is cleared for discharge home today from a cardiac standpoint Patient instructed to follow-up postdischarge with her primary control officer manager in [place] Nurse practitioner note has been reviewed by physician. Signing provider agrees with the documented findings, assessment, and plan of care documented by COAL GASIFICATION TECHNICIAN as a scribe. Objective - Vital Signs Vital signs: Vital Signs Temp 98.1 F 09/25/24 02:00 Pulse 65 09/25/24 02:00 Resp 17 09/25/24 02:00 BP 135/77 09/25/24 02:00 Pulse Ox 97 09/25/24 02:00 FiO2 Intake & Output 09/24/24 09/25/24 09/25/24 18:59 06:59 18:59 Intake Total 3590 Output Total 5 Balance 3585 Weight 73.5 kg Intake: IV 3050 Oral 540 Output: Estimated Blood Loss 5 Other: Voiding Method Toilet # Voids 1
--- NOTE | 2024-09-25 13:02 | P.DS ---
Providers Attending physician: Kate Cornelius Consults: 09/24/24 11:45 Consult Physician Stat Consulting Provider: Hoang Nielsen Consult Reason/Comments: Changes on EKG. Do you want consulting provider notified?: Already Contacted 09/24/24 17:36 Consult Physician Stat Consulting Provider: Hoang Nielsen Consult Reason/Comments: CHEST PAIN POST OPERATIVELY Do you want consulting provider notified?: Yes 09/24/24 21:26 Consult Physician Urgent Consulting Provider: Ben Greenberg Consult Reason/Comments: Post Op management Do you want consulting provider notified?: Already Contacted Primary care physician: Matthew John MD Hospital Course: Patient is a 54-year-old female admitted for laparoscopic cholecystectomy for cholelithiasis and patient underwent surgical surgery patient midsternal pressure-like chest pain 4/10 in severity denies any radiation of the pain denied any lightheadedness diaphoresis EKG showed some T wave inversions in the lateral leads because of which cardiology was consulted cardiology recommended monitoring 1 more day rule out acute coronary syndromes. Cardiology today cleared for discharge patient is being discharged today. REVIEW OF SYSTEMS: All other systems are negative except those mentioned in the HPI PHYSICAL EXAMINATION: GENERAL: The patient is alert and oriented x3, not in any acute distress. Well developed, well nourished. HEENT: Pupils are round and equally reacting to light. EOMI. No scleral icterus. No conjunctival pallor. Normocephalic, atraumatic. No pharyngeal erythema. No thyromegaly. CARDIOVASCULAR: S1 and S2 present. No murmurs, rubs, or gallops. PULMONARY: Chest is clear to auscultation, no wheezing or crackles. ABDOMEN: Soft, nontender, nondistended, normoactive bowel sounds. No palpable organomegaly. MUSCULOSKELETAL: No joint swelling or deformity. EXTREMITIES: No cyanosis, clubbing, or pedal edema. NEUROLOGICAL: Gross neurological examination did not reveal any focal deficits. SKIN: No rashes. Assessment and plan -Chest pain rule out acute coronary syndrome troponins are negative EKG showed some T wave inversions in the lateral leads cardiology evaluated the patient cleared for discharge -Cholelithiasis status postcholecystectomy -Hyperlipidemia -Fibromyalgia -Nicotine use: Counseling was provided for above-mentioned problems patient with resumed on appropriate home medications Patient will be discharged today and she will follow-up with her tumor registrar in [place]. Plan - Discharge Summary Discharge Rx Participant: No New Discharge Prescriptions: New Docusate [Colace] 100 mg PO BID #20 capsule HYDROcodone/APAP 5-325MG [[place] 5-325] 1 tab PO Q6HR PRN #10 tab PRN Reason: Pain Acetaminophen Tab [Tylenol] 650 mg PO Q6H #30 tab Ibuprofen [Motrin] 600 mg PO Q6HR PRN #40 tab PRN Reason: Pain No Action Ibuprofen [Motrin] 600 mg PO Q6HR PRN #40 tab PRN Reason: Pain Rosuvastatin Calcium 10 mg PO HS Docusate [Colace] 100 mg PO DAILY Triamcinolone 0.1% Cream [Kenalog 0.1% Cream] 1 applicatio TOPICAL BID Acetaminophen Tab [Tylenol] 1,000 mg PO Q6HR PRN #30 tablet PRN Reason: Pain Discharge Medication List Triamcinolone 0.1% Cream [Kenalog 0.1% Cream] 1 applicatio TOPICAL BID 08/24/23 [History] Acetaminophen Tab [Tylenol] 1,000 mg PO Q6HR PRN #30 tablet 12/10/23 [Rx] Ibuprofen [Motrin] 600 mg PO Q6HR PRN #40 tab 08/02/24 [Rx] Docusate [Colace] 100 mg PO DAILY 09/23/24 [History] Rosuvastatin Calcium 10 mg PO HS 09/23/24 [History] Acetaminophen Tab [Tylenol] 650 mg PO Q6H #30 tab 09/24/24 [Rx] Docusate [Colace] 100 mg PO BID #20 capsule 09/24/24 [Rx] HYDROcodone/APAP 5-325MG [[place] 5-325] 1 tab PO Q6HR PRN #10 tab 09/24/24 [Rx] Ibuprofen [Motrin] 600 mg PO Q6HR PRN #40 tab 09/24/24 [Rx] Follow up Appointment(s)/Referral(s): Ben Greenberg MD [STAFF PHYSICIAN] - 10/05/24 1:30 pm Patient Instructions/Handouts: *[facility] - Laparoscopic Cholecystectomy Discharge Instructions, *[facility] - Managing Your Pain After Surgery Without Opioids, *[facility] - (Anesthesia) Discharge Instructions Outpatient Surgery, *[facility] - Scopalamine Patch Instructions, Laparoscopic Cholecystectomy (DC) Discharge Disposition: HOME SELF-CARE
--- NOTE | 2024-09-25 13:02 | P.HPIM ---
History of Present Illness Patient is a 54-year-old female admitted for laparoscopic cholecystectomy for cholelithiasis and patient underwent surgical surgery patient midsternal pressure-like chest pain 4/10 in severity denies any radiation of the pain denied any lightheadedness diaphoresis EKG showed some T wave inversions in the lateral leads because of which cardiology was consulted cardiology recommended monitoring 1 more day rule out acute coronary syndromes. Cardiology today cleared for discharge patient is being discharged today. REVIEW OF SYSTEMS: All other systems are negative except those mentioned in the HPI PHYSICAL EXAMINATION: GENERAL: The patient is alert and oriented x3, not in any acute distress. Well developed, well nourished. HEENT: Pupils are round and equally reacting to light. EOMI. No scleral icterus. No conjunctival pallor. Normocephalic, atraumatic. No pharyngeal erythema. No thyromegaly. CARDIOVASCULAR: S1 and S2 present. No murmurs, rubs, or gallops. PULMONARY: Chest is clear to auscultation, no wheezing or crackles. ABDOMEN: Soft, nontender, nondistended, normoactive bowel sounds. No palpable organomegaly. MUSCULOSKELETAL: No joint swelling or deformity. EXTREMITIES: No cyanosis, clubbing, or pedal edema. NEUROLOGICAL: Gross neurological examination did not reveal any focal deficits. SKIN: No rashes. 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 Diverticulitis, colitis, bowel obstruction Aug 2023, History of Any Multi-Drug Resistant Organisms: None Reported Past Surgical History: Bowel Resection, Hernia Repair, Tubal Ligation Additional Past Surgical History / Comment(s): laparoscopy, colonoscopy 2 yrs ago, EGD 4 yrs ago, SHIN procedure with colostomy Aug 2023. colostomy reversal November 2023.incisional hernia repair Past Anesthesia/Blood Transfusion Reactions: No Reported Reaction Additional Past Anesthesia/Blood Transfusion Reaction / Comment(s): no blood transfusions Smoking Status: Current every day smoker - Past Family History Mother Family Medical History: Cancer Additional Family Medical History / Comment(s): stage 4 lung cancer . blocked arteries in legs. Father Additional Family Medical History / Comment(s): hemorrhagic stroke Medications and Allergies Home Medications Medication Instructions Recorded Confirmed Type Triamcinolone 0.1% Cream [Kenalog 1 applicatio TOPICAL BID 08/24/23 09/24/24 History 0.1% Cream] Acetaminophen Tab [Tylenol] 1,000 mg PO Q6HR PRN #30 tablet 12/10/23 09/24/24 Rx Ibuprofen [Motrin] 600 mg PO Q6HR PRN #40 tab 08/02/24 09/24/24 Rx Docusate [Colace] 100 mg PO DAILY 09/23/24 09/24/24 History Rosuvastatin Calcium 10 mg PO HS 09/23/24 09/24/24 History Acetaminophen Tab [Tylenol] 650 mg PO Q6H #30 tab 09/24/24 Rx Docusate [Colace] 100 mg PO BID #20 capsule 09/24/24 Rx HYDROcodone/APAP 5-325MG [[place] 1 tab PO Q6HR PRN #10 tab 09/24/24 Rx 5-325] Ibuprofen [Motrin] 600 mg PO Q6HR PRN #40 tab 09/24/24 Rx Allergies Allergy/AdvReac Type Severity Reaction Status Date / Time cephalexin [From Keflex] Allergy Rash/Hives Verified 09/24/24 07:27 Physical Exam Vitals: Vital Signs Temp Pulse Resp BP Pulse Ox 09/25/24 07:00 97.8 F 49 L 17 130/72 99 09/25/24 02:00 98.1 F 65 17 135/77 97 09/24/24 20:00 97.5 F L 66 17 134/73 96 09/24/24 17:45 98.0 F 55 L 16 145/78 95 09/24/24 17:16 59 L 16 133/79 98 09/24/24 16:30 66 18 119/68 97 09/24/24 16:00 64 17 129/74 97 09/24/24 15:15 60 18 129/92 97 09/24/24 14:45 55 L 11 L 124/69 96 09/24/24 14:19 64 14 124/91 99 09/24/24 14:04 70 14 109/76 97 09/24/24 13:45 59 L 16 110/62 100 09/24/24 13:30 63 16 108/64 99 09/24/24 13:15 62 16 110/64 100 Intake and Output 09/24/24 09/25/24 09/25/24 22:59 06:59 14:59 Intake Total 540 118 Balance 540 118 Intake: Oral 540 118 Other: Voiding Method Toilet # Voids 1 1 Thrombosis Risk Factor Assmnt - Choose All That Apply Any of the Below Risk Factors Present?: Yes Each Factor Represents 1 point: Age 41-60 years, Minor surgery planned, Obesity (BMI >25) Other Risk Factors: Yes Each Risk Factor Represents 2 Points: Laparoscopic surgery Thrombosis Risk Factor Assessment Total Risk Factor Score: 5 Thrombosis Risk Factor Assessment Level: High Risk
[2024-09-25 15:09] VITALS: BP 111/72; PULSE 48; RESP 16; TEMP 98
== END 2024-09-25 16:12 | disposition home or self-care (01) ==
LOC: OR 07:02 → 6NMEDSUR 17:21 → OR 09-25 16:12
PROVIDERS: ATTEND Internal Medicine
DX: K80.10 Calculus of gallbladder with chronic cholecystitis without obstruction (principal); K56.609 Unspecified intestinal obstruction, unspecified as to partial versus complete obstruction; G89.18 Other acute postprocedural pain; E78.5 Hyperlipidemia, unspecified; M79.7 Fibromyalgia; F17.200 Nicotine dependence, unspecified, uncomplicated; Z86.73 Personal history of transient ischemic attack (TIA), and cerebral infarction without residual deficits; Z88.1 Allergy status to other antibiotic agents; Z90.49 Acquired absence of other specified parts of digestive tract; Z98.51 Tubal ligation status; Z79.899 Other long term (current) drug therapy; Z98.890 Other specified postprocedural states
CPT/HCPCS: 47562; 88304; 84484; J2250; J0330; J1644; J1100; J2710; J0690; J2405; J2003; J3010; J2704; J1171; J0665; J1596